=== PATIENT | female | born 1960 | race Caucasian/White ===

== ENCOUNTER 2022-03-06 16:29 | Emergency (ER) | payer MEDICARE, MEDICAID, SELFPAY ==
[2022-03-06 17:48] VITALS: BP 173/100; PULSE 82; RESP 18; TEMP 36.3; O2SAT 99; BMI 18.8
[2022-03-06 19:18] LABS: MANUAL DIFF FLAG NO
[2022-03-06 19:20] LABS: Basophils Absolute Auto 0.1 X10*3/uL (0.0-0.2); Basophils Percent Auto 0.6 % (0-2); Eosinophils Absolute Auto 0.2 X10*3/uL (0.0-0.4); Eosinophils Percent Auto 1.7 % (0-4); Hematocrit 49.3 % (37.0-47.0); Hemoglobin 16.6 g/dl (12.0-16.0); Imm Gran Abs Auto 0.03 X10*3/uL (0.00-0.03); Imm Gran Pct Auto 0.3 % (0.0-0.4); Lymphocytes Absolute Auto 2.9 X10*3/uL (1.2-4.9); Lymphocytes Percent Auto 28.9 % (20-40); Mean Corpuscular HGB Conc 33.7 g/dl (31.0-35.0); Mean Corpuscular Hemoglobin 30.1 pg (27.0-33.0); Mean Corpuscular Volume 89.5 fL (80.0-98.0); Monocytes Absolute Auto 0.7 X10*3/uL (0.1-1.2); Monocytes Percent Auto 7.2 % (2-11); Neutrophils Percent Auto 61.3 % (45-73); Platelet Count 365 X10*3/uL (160-400); Red Blood Count 5.51 X10*6/uL (4.20-5.50); Red Cell Distribution Width 12.9 % (11.0-16.0); White Blood Count 9.9 X10*3/uL (4.8-10.8)
[2022-03-06 19:33] LABS: COVID-19 Test Negative (Negative)
[2022-03-06 19:35] LABS: Alanine Aminotransferase 16 U/L (0-31); Albumin Level 4.7 g/dL (3.5-5.0); Alkaline Phosphatase 84 U/L (39-117); Anion Gap 14 (12-20); Aspartate Amino Transferase 16 U/L (5-31); Bilirubin Total 0.7 mg/dL (0.0-1.0); Blood Urea Nitrogen 13 mg/dL (9-16); Calcium 10.9 mg/dL (8.4-10.2); Carbon Dioxide 27 mmol/L (22-29); Chloride 106 mmol/L (96-108); Creatinine Clr Calc Pharmacy 56.7; Estimated Glomerular Filt Rate > 60; Glucose Random 92 mg/dL (60-115); Potassium 4.8 mmol/L (3.3-5.1); Sodium 142 mmol/L (135-145); Total Protein 7.8 g/dL (6.5-8.0)
[2022-03-06 20:34] LABS: Appearance Urine CLEAR; Color Urine YELLOW; Glucose Urine UA NEG (NEG); Leukocyte Esterase Urine 1+ (NEG); Nitrite Urine NEG (NEG); PH 6.5 (5.0-8.0); UACC Culture Trigger YES; Urine Blood 2+ (NEG); Urine Ketones 15 MG/DL (NEG); Urine Protein NEG (NEG-TRACE)
[2022-03-06 20:47] LABS: Mucus Urine 1+ /LPF; Squamous Epithelial Cell Urine 1+ /LPF
[2022-03-06 20:50] LABS: Bacteria Urine TRACE /LPF
--- NOTE | 2022-03-07 04:02 | ED.ABDPAIN ---
HPI - Abdominal Pain General Chief Complaint: Abdominal Pain Stated Complaint: headache Time Seen by Provider: 03/06/22 17:10 Source: patient Mode of arrival: ambulatory History of Present Illness HPI narrative: 61-year-old female with history of gastritis and hyperlipidemia who presents with epigastric discomfort but denies any diarrhea, shortness of breath, fever, chills, chest pain/palpitations. Patient states that the pain has somewhat improved during her weight here in the emergency room but she is having 1 of her typical migraine headaches. These are typically associated with mild nausea that patient reports she does have, in addition, patient reports urinary frequency. Related Data Previous Rx's Medication Instructions Recorded nitrofurantoin 100 mg PO Q12H 5 Days #10 cap 03/07/22 monohydrate/macrocrystals 100 mg capsule (Macrobid) omeprazole 40 mg capsule,delayed 40 mg PO DAILY #30 cap 03/07/22 release Allergies Allergy/AdvReac Type Severity Reaction Status Date / Time aspirin [ASA] AdvReac Unknown Verified 03/06/22 17:46 Review of Systems Review of Systems Pertinent positives and negatives as stated in HPI 10 point review of systems is otherwise negative. [facility] Past Medical History Source: nursing notes reviewed Social History Social History Advance Directives: No Physical Exam ED Vital Signs: Vital Signs - 24 hr 03/06/22 17:48 03/07/22 04:50 Temperature 97.4 F 98 F Pulse Rate 82 77 Respiratory Rate 18 16 Blood Pressure 173/100 H 135/99 H Pulse Oximetry 99 97 BMI result Body Mass Index 18.8 VITAL SIGNS: Reviewed. GENERAL: Well developed, well nourished, in no acute distress. HEAD: Normocephalic/atraumatic EYES: PERRLA, EOMI EARS: Ext canals without abnormality OROPHARYNX: no oral lesions noted, posterior pharynx clear LUNGS: Normal breath sounds. No adventitious sounds or accessory muscle use. SpO2<99> CARDIOVASCULAR: Regular rate and rhythm without noted murmurs ABDOMEN: Soft, non-tender, non-distended with bowel sounds. MUSCULOSKELETAL: No tenderness, deformities, or effusions noted on gross inspection. EXTREMITIES: No cyanosis, clubbing or edema. SKIN: Inspection of the skin reveals no rashes NEUROLOGIC: Alert and oriented x 4. Strength and sensation to light touch were grossly intact x 4, cranial nerves 2-12 are grossly intact, no pronator drift, no facial asymmetry. Course Course Course Narrative: 61-year-old female with history and clinical presentation consistent with migraine as well as mild gastritis. Review of all investigations otherwise is negative except for presence of wbc's in the urine with trace bacteria. Patient received GI cocktail as well as initial antibiotics and medication for her headache. On re-evaluation patient is feeling much better, headache has improved and her stomach is feeling less upset. She is tolerating oral intake and is otherwise discharged home in stable condition. MDM - Abdominal Pain Lab Data Result diagrams: 03/06/22 19:08 03/06/22 19:08 Labs: Lab Results 03/06/22 03/06/22 03/06/22 Range/Units 19:08 19:08 19:08 WBC 9.9 (4.8-10.8) X10*3/uL RBC 5.51 H (4.20-5.50) X10*6/uL Hgb 16.6 H (12.0-16.0) g/dl Hct 49.3 H (37.0-47.0) % MCV 89.5 (80.0-98.0) fL MCH 30.1 (27.0-33.0) pg MCHC 33.7 (31.0-35.0) g/dl RDW 12.9 (11.0-16.0) % Plt Count 365 (160-400) X10*3/uL MPV 8.0 L (9.4-12.3) fL Immature Gran % (Auto) 0.3 (0.0-0.4) % Neut % (Auto) 61.3 (45-73) % Lymph % (Auto) 28.9 (20-40) % [place] % (Auto) 7.2 (2-11) % Eos % (Auto) 1.7 (0-4) % Baso % (Auto) 0.6 (0-2) % Lymph # (Auto) 2.9 (1.2-4.9) X10*3/uL [place] # (Auto) 0.7 (0.1-1.2) X10*3/uL Eos # (Auto) 0.2 (0.0-0.4) X10*3/uL Baso # (Auto) 0.1 (0.0-0.2) X10*3/uL Abs Immat Gran (auto) 0.03 (0.00-0.03) X10*3/uL Absolute Neuts (auto) 6.0 (2.0-8.3) x10*3/uL Absolute Nucleated RBC 0.000 (0.0-0.012) X10*3/uL Nucleated RBC % (auto) 0.0 (0.0-0.2) /100WBC Sodium 142 (135-145) mmol/L Potassium 4.8 (3.3-5.1) mmol/L Chloride 106 (96-108) mmol/L Carbon Dioxide 27 (22-29) mmol/L Anion Gap 14 (12-20) BUN 13 (9-16) mg/dL Creatinine 0.79 (0.5-1.4) mg/dL Estim Creat Clear Calc 56.7 Estimated GFR > 60 Random Glucose 92 (60-115) mg/dL Calcium 10.9 H (8.4-10.2) mg/dL Total Bilirubin 0.7 (0.0-1.0) mg/dL AST 16 (5-31) U/L ALT 16 (0-31) U/L Alkaline Phosphatase 84 (39-117) U/L Total Protein 7.8 (6.5-8.0) g/dL Albumin 4.7 (3.5-5.0) g/dL Urine Color Urine Appearance Urine pH (5.0-8.0) Ur Specific Caldwell (1.005-1.025) Urine Protein (NEG-TRACE) MG/DL Urine Glucose (UA) (NEG) MG/DL Urine Ketones (NEG) MG/DL Urine Blood (NEG) Urine Nitrite (NEG) Ur Leukocyte Esterase (NEG) Urine RBC (0) /HPF Urine WBC (0-4) /HPF Ur Squamous Epith Cells /LPF Urine Bacteria /LPF Urine Mucus /LPF COVID-19 ([place]) Negative (Negative) COVID-19 Clin Com See Note 03/06/22 Range/Units 20:18 WBC (4.8-10.8) X10*3/uL RBC (4.20-5.50) X10*6/uL Hgb (12.0-16.0) g/dl Hct (37.0-47.0) % MCV (80.0-98.0) fL MCH (27.0-33.0) pg MCHC (31.0-35.0) g/dl RDW (11.0-16.0) % Plt Count (160-400) X10*3/uL MPV (9.4-12.3) fL Immature Gran % (Auto) (0.0-0.4) % Neut % (Auto) (45-73) % Lymph % (Auto) (20-40) % [place] % (Auto) (2-11) % Eos % (Auto) (0-4) % Baso % (Auto) (0-2) % Lymph # (Auto) (1.2-4.9) X10*3/uL [place] # (Auto) (0.1-1.2) X10*3/uL Eos # (Auto) (0.0-0.4) X10*3/uL Baso # (Auto) (0.0-0.2) X10*3/uL Abs Immat Gran (auto) (0.00-0.03) X10*3/uL Absolute Neuts (auto) (2.0-8.3) x10*3/uL Absolute Nucleated RBC (0.0-0.012) X10*3/uL Nucleated RBC % (auto) (0.0-0.2) /100WBC Sodium (135-145) mmol/L Potassium (3.3-5.1) mmol/L Chloride (96-108) mmol/L Carbon Dioxide (22-29) mmol/L Anion Gap (12-20) BUN (9-16) mg/dL Creatinine (0.5-1.4) mg/dL Estim Creat Clear Calc Estimated GFR Random Glucose (60-115) mg/dL Calcium (8.4-10.2) mg/dL Total Bilirubin (0.0-1.0) mg/dL AST (5-31) U/L ALT (0-31) U/L Alkaline Phosphatase (39-117) U/L Total Protein (6.5-8.0) g/dL Albumin (3.5-5.0) g/dL Urine Color YELLOW Urine Appearance CLEAR Urine pH 6.5 (5.0-8.0) Ur Specific Caldwell 1.020 (1.005-1.025) Urine Protein NEG (NEG-TRACE) MG/DL Urine Glucose (UA) NEG (NEG) MG/DL Urine Ketones 15 (NEG) MG/DL Urine Blood 2+ H (NEG) Urine Nitrite NEG (NEG) Ur Leukocyte Esterase 1+ H (NEG) Urine RBC 5-9 H (0) /HPF Urine WBC 5-9 H (0-4) /HPF Ur Squamous Epith Cells 1+ /LPF Urine Bacteria TRACE /LPF Urine Mucus 1+ /LPF COVID-19 ([place]) (Negative) COVID-19 Clin Com Discharge Plan Discharge Clinical Impression: Gastritis, Gastroesophageal reflux disease, UTI (urinary tract infection) Patient Disposition: Home, Self-Care Instructions: Gastritis (ED), Urinary Tract Infection in Women (DC), Diet for Stomach Ulcers and Gastritis (ED) Additional Instructions: 1. Increase intake of water. 2. You have been given a prescription for gastritis. 3. Please complete the entire course of antibiotics. Return to the ER for worsening symptoms. Prescriptions: New omeprazole 40 mg capsule,delayed release(DR/EC) 40 mg PO DAILY Qty: 30 0RF nitrofurantoin monohyd/m-cryst [Macrobid] 100 mg capsule 100 mg PO Q12H 5 Days Qty: 10 0RF Rx Instructions: must administer with a meal/food
[2022-03-07] MEDS: Lidocaine HCl Viscous 2 % 15 ML SOLUTION 10 ML MUCOUS MEM (04:05)
[2022-03-07] MEDS: Magnesium Hydrox/Alum Hydrox 30 ML ORAL.SUSP PO (04:05)
[2022-03-07] MEDS: Acetaminophen 325 MG TABLET 975 MG PO (04:05)
[2022-03-07] MEDS: Nitrofurantoin Monohyd/M-Cryst 100 MG CAPSULE PO (04:06)
[2022-03-07 04:50] VITALS: BP 135/99; PULSE 77; RESP 16; TEMP 36.6; O2SAT 97
== END 2022-03-07 05:59 | disposition home or self-care (01) ==
PROVIDERS: Emergency Provider Student in an Organized Health Care Education/Training Program
DX: K29.70 Gastritis, unspecified, without bleeding (principal); K21.9 Gastro-esophageal reflux disease without esophagitis; N39.0 Urinary tract infection, site not specified; R51.9 Headache, unspecified; Z20.822 Contact with and (suspected) exposure to COVID-19
CPT/HCPCS: 80053; 81001; 85025; 87086; 87635; 99283

== ENCOUNTER 2022-10-24 14:57 | Outpatient (REF) | payer MEDICARE, MEDICAID, SELFPAY ==
--- NOTE | ~2022-10-24 | MM_ITS ---
EXAMINATION: MM SCREENING DIGITAL BREAST TOMOSYNTHESIS, BILATERAL CLINICAL INFORMATION: Screening. Asymptomatic. Age 62, prior mammography from [place] over 15 years ago and no longer available. No known family history breast cancer. The lifetime risk of breast cancer based on the Tyrer-Cuzick Model is 7%. COMPARISON: None (current study represents new baseline exam). TECHNIQUE: Digital breast tomosynthesis is performed in both the craniocaudal and mediolateral oblique views along with computer-aided detection (CAD). Synthesized 2D images are generated from the tomosynthesis. Additional bilateral exaggerated CC views are provided. FINDINGS: The breasts are heterogeneously dense, which may obscure small masses (ACR BI-RADS breast composition Category c). Breast tissue composition borders on average fibroglandular. There are no significant masses, abnormal calcifications, or other abnormalities. No architectural abnormality. The axilla and skin contours are unremarkable. MM/MM tomosynthesis screening BI IMPRESSION: No mammographic evidence of malignancy. ASSESSMENT: BI-RADS 1: Negative RECOMMENDATION: Routine annual mammography screening. This patient's information was entered into a reminder system with a target due date for their next mammogram.
== END 2022-10-24 14:58 | disposition home or self-care (01) ==
LOC: HO.MAMMO 14:57
PROVIDERS: PCP Internal Medicine; Visit Provider Internal Medicine
DX: Z12.31 Encounter for screening mammogram for malignant neoplasm of breast (principal)
CPT/HCPCS: 77063; 77067

== ENCOUNTER → 2022-10-28 13:36 | Outpatient (BNVA) | payer MEDICARE, MEDICAID, SELFPAY | PROVIDERS: Visit Provider Orthopaedic Surgery | DX: M65.4 Radial styloid tenosynovitis [de Quervain] (principal); R20.0 Anesthesia of skin; R20.2 Paresthesia of skin | CPT/HCPCS: 99202; J1100 ==

== ENCOUNTER 2022-11-27 13:00 | Outpatient (REF) | payer MEDICARE, MEDICAID, SELFPAY ==
[2022-11-27 17:43] LABS: CT PCR NOT DETECTED (Not Detect.); NG PCR NOT DETECTED (Not Detect.)
[2022-11-28 13:16] LABS: BV Int Neg Control Negative (Negative); BV Int Pos Control Positive (Positive)
== END 2022-11-27 13:01 | disposition home or self-care (01) ==
LOC: HO.LAB 13:00
PROVIDERS: PCP Internal Medicine; Visit Provider Advanced Practice Midwife
DX: Z01.419 Encounter for gynecological examination (general) (routine) without abnormal findings (principal); Z11.3 Encounter for screening for infections with a predominantly sexual mode of transmission
CPT/HCPCS: 0353U; 87480; 87510; 87660

== ENCOUNTER 2022-11-27 14:11 | Outpatient (REF) | payer MEDICARE, MEDICAID, SELFPAY ==
[2022-12-02 05:24] LABS: HPV mRNA E6/E7 rflx Not Detected (Not Detected)
== END 2022-11-27 14:12 | disposition home or self-care (01) ==
LOC: HO.LNP 14:11
PROVIDERS: Visit Provider Advanced Practice Midwife
DX: Z01.419 Encounter for gynecological examination (general) (routine) without abnormal findings (principal); Z11.51 Encounter for screening for human papillomavirus (HPV)
CPT/HCPCS: 87624; 88142

== ENCOUNTER 2023-02-26 08:09 | Outpatient (REF) | payer MEDICARE, MEDICAID, SELFPAY ==
--- NOTE | 2023-02-26 08:16 | EMG_ITS ---
Bilateral median and ulnar motor and sensory studies were performed. Bilateral radial sensory studies were performed and paraspinal muscles were tested with a needle. IMPRESSION: 1. Mild right median neuropathy across carpal tunnel. 2. Mild bilateral ulnar neuropathy across elbow. MD BIB [place]/BENTLEY / [id number]
[2023-02-26 08:20] LABS: MANUAL DIFF FLAG NO
[2023-02-26 08:44] LABS: Basophils Absolute Auto 0.1 X10*3/uL (0.0-0.2); Basophils Percent Auto 0.7 % (0-2); Eosinophils Absolute Auto 0.1 X10*3/uL (0.0-0.4); Eosinophils Percent Auto 1.5 % (0-4); Hematocrit 47.3 % (37.0-47.0); Hemoglobin 15.6 g/dl (12.0-16.0); Imm Gran Abs Auto 0.02 X10*3/uL (0.00-0.03); Imm Gran Pct Auto 0.3 % (0.0-0.4); Lymphocytes Absolute Auto 1.5 X10*3/uL (1.2-4.9); Lymphocytes Percent Auto 20.5 % (20-40); Mean Corpuscular Hemoglobin 29.4 pg (27.0-33.0); Mean Corpuscular Volume 89.2 fL (80.0-98.0); Mean Platelet Volume 8.4 fL (9.4-12.3); Monocytes Absolute Auto 0.6 X10*3/uL (0.1-1.2); Monocytes Percent Auto 8.4 % (2-11); Neutrophils Absolute Auto 5.2 x10*3/uL (2.0-8.3); Neutrophils Percent Auto 68.6 % (45-73); Platelet Count 351 X10*3/uL (160-400); Red Cell Distribution Width 13.6 % (11.0-16.0); White Blood Count 7.5 X10*3/uL (4.8-10.8)
[2023-02-26 09:22] LABS: Alanine Aminotransferase 14 U/L (0-31); Albumin Level 4.4 g/dL (3.5-5.0); Alkaline Phosphatase 81 U/L (39-117); Anion Gap 15 (12-20); Aspartate Amino Transferase 17 U/L (5-31); Bilirubin Total 0.8 mg/dL (0.0-1.0); Blood Urea Nitrogen 13 mg/dL (9-16); Calcium 9.9 mg/dL (8.4-10.2); Carbon Dioxide 26 mmol/L (22-29); Chloride 109 mmol/L (96-108); Cholesterol 228 mg/dL; Estimated Glomerular Filt Rate > 60; Glucose Fasting 101 mg/dL (60-99); HDL Cholesterol 51 mg/dL; LDL Cholesterol Calculated 154 mg/dl; Potassium 4.4 mmol/L (3.3-5.1); Sodium 146 mmol/L (135-145); Total Protein 7.1 g/dL (6.5-8.0); Triglycerides 119 mg/dL
[2023-02-26 09:40] LABS: Vitamin D 25-OH Total 32.2 ng/mL (>30)
[2023-02-27 03:08] LABS: Syphilis Screen Nonreactive (Nonreactive)
[2023-02-27 04:22] LABS: HBc Num1 0.09 S/CO (0.00-0.79); HIV AB/AG Nonreactive (Nonreactive); HIV Num 1 0.06 S/CO (0.00-0.99); Hepatitis B Core Antibody Nonreactive (Nonreactive); ~HepC Num1 0.37 S/CO (0.00-0.79); ~Hepatitis C Antibody Nonreactive (Nonreactive)
[2023-03-02 07:44] LABS: Calcium, Ionized 5.4 mg/dL (4.7-5.5)
== END 2023-02-26 08:10 | disposition home or self-care (01) ==
LOC: HO.NEURO 08:09
PROVIDERS: Advanced Practice Midwife; PCP Internal Medicine; Visit Provider Orthopaedic Surgery
DX: R20.0 Anesthesia of skin (principal); R20.2 Paresthesia of skin; E83.52 Hypercalcemia; F32.A Depression, unspecified; G56.03 Carpal tunnel syndrome, bilateral upper limbs; I10 Essential (primary) hypertension; K29.70 Gastritis, unspecified, without bleeding; Z11.4 Encounter for screening for human immunodeficiency virus [HIV]; Z78.0 Asymptomatic menopausal state; Z20.2 Contact with and (suspected) exposure to infections with a predominantly sexual mode of transmission; Z11.59 Encounter for screening for other viral diseases; Z72.89 Other problems related to lifestyle
CPT/HCPCS: 36415; 80053; 80061; 82306; 82330; 85025; 86704; 86780; 86803; 87389; 95886; 95911

== ENCOUNTER 2023-05-28 15:03 | Outpatient (AMB) | payer MEDICARE, MEDICAID, SELFPAY ==
--- NOTE | 2023-05-28 15:04 | A.OFFVIS_ITS ---
Intake Vital Signs 05/28/23 15:05 Height 5 ft 2 in Weight 106 lb BMI 19.4 BP 116/72 Intake Visit Reasons: OMAR /30 mins Watch Assembler Required: Yes Watch Assembler Language: Adobe Flex Developer Name: Darya Information Interpreted: non-clinical & clinical Ruby On Rails Consultant: Ruby On Rails Consultant Present (Darya) Allergies aspirin [ASA] Adverse Reaction (Verified 05/28/23 15:08) Unknown Is last menstrual period known: No Post menopausal: Yes Patient : No HPI HPI Comments History of Present Illness Details She is here for OMAR for Trichomonas. Reports she finished Rx that was given. Currently not sexually active. Denies new sexual partner, vaginal discharge or pelvic pain. PFSH Medical History Carpal tunnel syndrome, bilateral Cervical disc disease Cigarette smoker one half pack a day or less Depression Essential hypertension Gastritis Hypercalcemia Trichomonas contact, treated Surgical History H/O tubal ligation Hx of tonsillectomy Previous section Family History Father HTN (hypertension) Social History Household Members Other:: roomate Housing: Apartment Alcohol intake: current Alcohol intake frequency: holidays/special occasions only Patient Tobacco Use Status: Current everyday Tobacco user Cigarettes Per Day: 5 Years Smoked: 45 e-Cigarette/Vaping Use: Never Used Patient : No Current occupational status: unemployed and disabled Current occupation: rt hand Cognitive needs: No Hearing needs: No Vision needs: Yes Female Reproductive History Menstrual control method: none Total pregnancies: 3 Number of Living Children: 3 History of STI: Yes (11/27/22 +TRich) Physical Exam Vital Signs: Last Vital Signs BP 116/72 05/28/23 15:05 BMI result Body Mass Index 19.4 Const General: cooperative, healthy appearing, comfortable, no acute distress, well developed, alert and awake Other: General: Yes bladder normal to palpation External Female Exam: normal external appearance and normal appearance of the urethra Speculum Exam - Vagina: normal appearance of the vagina, normal palpation, abnormal vaginal discharge white and vagina atrophic Speculum Exam - Cervix: normal appearance of the cervix and normal palpation Bimanual exam- vagina & uterus: normal bimanual exam, normal palpation, bladder normal to palpation and normal palpation Bimanual Exam- Adnexa, other: normal adnexae and no masses Results Reviewed Results Reviewed: Laboratory Tests 11/27/22 13:00 Gardnerella DNA Probe Positive A Trichomonas DNA Probe Positive A Assessment & Plan Assessment & Plan (1) Trichomonas contact, treated: Code(s): Z20.2 - Contact with and (suspected) exposure to infections with a predominantly sexual mode of transmission Plan: Discussed: BV testing and GC/CT panel done today. Await results and treat accordingly. Encouraged to use condoms for STD prevention if become sexually active. All of her questions and concerns were addressed to the best of my ability and shared decision making. She is agreeable to plan of care. Orders: Orders Bacterial Vaginosis Panel Today Z11.3 - Encounter for screening for infections with a predominantly sexual mode of transmission, Z20.2 - Contact with and (suspected) exposure to infections with a predominantly sexual mode of transmission Coding Level of Care Code Est Pt Level 3 (39542) Diagnoses Trichomonas contact, treated Z20.2
[2023-05-28 15:05] VITALS: BP 116/72; BMI 19.4
== END 2023-05-28 15:21 | disposition home or self-care (01) ==
LOC: HO.HWS 15:03
PROVIDERS: PCP Internal Medicine; Visit Provider Advanced Practice Midwife
DX: Z20.2 Contact with and (suspected) exposure to infections with a predominantly sexual mode of transmission (principal)
CPT/HCPCS: 99213

== ENCOUNTER 2023-05-28 15:03 | Outpatient (REF) | payer MEDICARE, MEDICAID, SELFPAY ==
[2023-05-29 15:17] LABS: BV Int Neg Control Negative (Negative); BV Int Pos Control Positive (Positive)
== END 2023-05-28 15:04 | disposition home or self-care (01) ==
LOC: HO.LAB 15:03
PROVIDERS: PCP Internal Medicine; Visit Provider Advanced Practice Midwife
DX: Z11.3 Encounter for screening for infections with a predominantly sexual mode of transmission (principal); Z20.2 Contact with and (suspected) exposure to infections with a predominantly sexual mode of transmission
CPT/HCPCS: 87480; 87510; 87660; 99212

== ENCOUNTER 2023-07-31 12:54 | Outpatient (AMB) | payer MEDICARE, MEDICAID, SELFPAY ==
[2023-07-31 13:27] VITALS: BP 112/78; PULSE 80; O2SAT 98; BMI 20.1
--- NOTE | 2023-07-31 13:27 | A.OFFPC_ITS ---
Vital Signs 07/31/23 13:27 Height 5 ft 2 in Weight 110 lb 2 oz BMI 20.1 BP 112/78 Blood Pressure Location Lt brachial Position Sitting Pulse 80 Pulse Source Pulse Oximeter Pulse Oximetry (%) 98 Oxygen Delivery Method Room Air Intake Visit Reasons: Pain in Shoulders Intake Note: pt is here for pain in her left shoulder pt says she did have a torn muscle in the past but now when she puts her arm up she feels a lump in the muscle Allergies aspirin [ASA] Adverse Reaction (Verified 07/31/23 14:26) Unknown Medication List - Last Reconciled 07/31/23 by Neli Beavers MD acetaminophen (Tylenol Extra Strength) 500 mg PO Q6H PRN Tobacco use date assessed: 07/31/23 Dental Screening Dental Screen Date: 07/31/23 Did you have a dental visit in the last 12 months?: No Did you have a dental problem in the last 6 months where you did not have access to dental care?: No Was dental information given to patient?: No HPI Pain in Shoulders HPI Details 62-year-old lady here today complaining of pain in her left shoulder, worse with raising her left arm overhead, lifting or carrying anything in her left hand, or doing any twisting movement with her left arm. Patient states that she has injured the same arm several years ago, torn some muscles, but never received treatment She is also complaining of frequent heartburn symptoms, worse after eating anything spicy or acidic. Currently not taking any medication for this. Denies any melena no hematochezia, no alteration in bowel habits. [facility] Medical History (Updated 07/31/23 @ 14:27 by Neli Beavers MD) Chronic heartburn Chronic left shoulder pain Trichomonas contact, treated Cervical disc disease Hypercalcemia Depression Cigarette smoker one half pack a day or less Gastritis Carpal tunnel syndrome, bilateral Essential hypertension Surgical History H/O tubal ligation Previous section Hx of tonsillectomy Family History Father HTN (hypertension) Social History Household Members Other:: roomate Housing: Apartment Alcohol intake: current Alcohol intake frequency: holidays/special occasions only Patient Tobacco Use Status: Current someday Tobacco user Cigarettes Per Day: 1 Years Smoked: 45 e-Cigarette/Vaping Use: Currently Using Current occupational status: unemployed and disabled Current occupation: rt hand Cognitive needs: No Hearing needs: No Vision needs: Yes Questionnaire REYNALDO-7 AMB Questionnaire REYNALDO-7 Date REYNALDO - 7 assessed: 09/30/22 Source: Developed by Drs. Edgardo Peguero, Jolene Melissa, Kennedy Solares and colleagues, with an educational tona from [email or web address]. Review of Systems Const All systems reviewed & are unremarkable except as noted in HPI and below Physical exam (Primary Care) Vital Signs: Last Vital Signs Pulse 80 07/31/23 13:27 BP 112/78 07/31/23 13:27 Pulse Ox 98 07/31/23 13:27 Oxygen Delivery Method Room Air 07/31/23 13:27 BMI result Body Mass Index 20.1 Tobacco/Smoking Status: Tobacco use Status Tobacco use date assessed 07/31/23 07/31/23 13:35 Patient Tobacco Use Status Current someday Tobacco 07/31/23 13:35 e-Cigarette/Vaping Use Currently Using 07/31/23 13:35 Const General: comfortable and no acute distress Nutritional Appearance: average body habitus Orientation/consciousness: patient oriented x3 HENMT Head: Yes atraumatic Ears: hearing grossly normal bilaterally General nose exam: Normal external nose present Face and sinus: Yes face symmetric Mouth: Normal oral and palatal mucosa present, oropharynx normal and moist mucous membranes Neck Neck: Yes full ROM, Yes no lymphadenopathy and Yes supple Thyroid: Thyroid normal Resp Effort & Inspection: normal respiratory effort Auscultation: clear to auscultation bilaterally Cardio Rate: regular rate Rhythm: regular rhythm Heart sounds: S1 normal heart sound present and S2 normal heart sound present GI Palpation (GI): Soft to palpation, nontender, no guarding and no masses Back/Spine/Pelvis Back: No back tenderness Skin General skin exam: no rashes or lesions noted Neuro General: patient oriented x3, gait normal, tone normal, moves all extremities, Normal light touch and pain sensation, no focal motor deficits and CN's II-XI intact bilaterally Extrem Other: Tenderness on palpation over posterior aspect of left shoulder, with no gross bone deformity or joint swelling seen, General: Yes normal to inspection, Yes full ROM and Yes no clubbing, cyanosis or edema Assessment and Plan Assessment & Plan (1) Chronic left shoulder pain: Code(s): M25.512 - Pain in left shoulder; G89.29 - Other chronic pain Plan: Ordered x-ray of left shoulder and referred for physical therapy. Advised to try taking Tylenol extra-strength 500 mg per tablet to take 1 tablet every 6 hours as needed for pain. (2) Chronic heartburn: Code(s): R12 - Heartburn Plan: Given prescription for omeprazole 20 mg per capsule to take once a day an hour before eating. For at least 30 days. Referred to GI for further evaluation and management of chronic heartburn Orders: Orders XR shoulder LT min 2V 07/31/23 G89.29 - Other chronic pain, M25.512 - Pain in left shoulder PT Evaluation and Treatment 07/31/23 G89.29 - Other chronic pain, M25.512 - Pain in left shoulder Referrals Gastroenterology Referral R12 - Heartburn Medications: New omeprazole 20 mg PO DAILY 30 caps 1RF Coding Level of Care Code Est Pt Level 3 (36192) Diagnoses Chronic left shoulder pain M25.512; G89.29 Chronic heartburn R12
== END 2023-07-31 14:34 | disposition home or self-care (01) ==
PROVIDERS: PCP Internal Medicine; Visit Provider Internal Medicine
DX: M25.512 Pain in left shoulder (principal); G89.29 Other chronic pain; R12 Heartburn
CPT/HCPCS: 99213

== ENCOUNTER 2023-09-29 11:00 | Outpatient (RCR) | payer MEDICARE, MEDICAID, SELFPAY ==
--- NOTE | 2023-09-15 11:56 | MHC.PT.EP ---
[facility] [place] Office [place] Office [place] Office [address] Carley Taylor [address] [phone] F: [phone] F: [phone] F: [phone] F: [phone] Physical Therapy Plan of Care Date of Evaluation: 09/15/23 Date of Surgery: n/a Diagnosis: chronic L shoulder pain Assessment: Patient is a 63 old female presenting to PT with complaints of pain in her L shoulder. Pt reports onset of pain began >1 year ago due to insidious onset. She presents today with impairments in pain, ROM, strength, and posture. Pt's current occupation is none, with baseline physical activities including ADLs, reaching, lifting. Pt expresses senior living goal of reducing pain, and is motivated to work towards this in PT. Clinical presentation today is most consistent with signs and sx associated with L shoulder pain and pt will benefit from skilled PT 2 week x 4 weeks to address the following problems and impairments noted upon evaluation: pain, ROM, strength, and posture. These problems limit the patient with the following functional activities: ADLs, reaching, lifting. The prescribed treatment plan of care is medically necessary. Co-morbidities of HTN were identified and taken into considerations of plan of care. Pt was educated on HEP, role of PT, prognosis, POC. Frequency and Duration: The patient will be seen 2 x week x 4 weeks Short Term Goals: Pt will demonstrate ROM through available range with min to no pain in 2 weeks. Pt will demonstrate improved L shoulder MMT strength by 1/3 grade in 2 weeks. Pt will demonstrate improved postural awareness by sitting with biomechanically correct posture without cues throughout session to improve overall postural function in 2 weeks. [employer] Goals: Pt will demonstrate improved SPADI score by 13 points in 4 weeks for improved functional mobility. Pt will demonstrate ability to reach OH with min to no pain in 4 weeks for improved tolerance to self care like washing her hair. Pt will demonstrate improved ability to complete ADLs with min to no pain as a result of her shoulder in 4 weeks for improved independence. Treatment Plan: Modalities to reduce pain, spasms and effusion. Manual therapy to restore motion and function. Therapeutic exercise to improve strength and flexibility. Neuromuscular re-education for posture and balance. Therapeutic activities to return to functional activities of daily living. Electronically signed by: Belkis Hart, PT, DPT, ATC Please sign and return to therapist. Thank you for your referral.
--- NOTE | 2023-10-20 10:20 | MHC.PT.DC ---
[facility] [place] Office [place] Office [place] Office [address] [phone] F: [phone] F: [phone] F: [phone] F: [phone] Physical Therapy Discharge Report Diagnosis: chronic L shoulder pain Date of Surgery: n/a Date of Evaluation: 09/15/23 Date of Discharge: 10/20/23 Treatments to Date: 4 Cancellations to Date: 2 No Shows to Date: 2 Discharge Status: Visit Non-compliance Discharge Summary: Pt has failed to comply with [facility] attendance policy and no showed her last 2 appointments. Pt to be d/c per policy. Electronically signed by: Belkis Hart PT, DPT, ATC Please sign and return to therapist. Thank you for your referral.
== END 2023-10-20 10:21 | disposition home or self-care (01) ==
LOC: HO.PTCHIC 11:00
PROVIDERS: PCP Internal Medicine; Visit Provider Internal Medicine
DX: M25.512 Pain in left shoulder (principal); G89.29 Other chronic pain
CPT/HCPCS: 97110; 97161

== ENCOUNTER 2023-11-12 07:17 | Emergency (ER) | payer MEDICARE, MEDICAID, SELFPAY ==
[2023-11-12 07:45] VITALS: BP 147/97; BP 160/100; PULSE 75; PULSE 94; RESP 18; TEMP 36.6; O2SAT 99; BMI 20.1
--- NOTE | 2023-11-12 08:22 | ED_ITS ---
HPI - General Adult General Chief complaint: General Medical Stated complaint: HIGH BP 160/100 PER EMS Time Seen by Provider: 11/12/23 08:22 History of Present Illness HPI narrative: This is a 63-year-old woman who comes to the emergency room this morning by ambulance because her blood pressure was high at home. She was worried that her diastolic blood pressure was over 100. The patient says that she has been feeling dizzy with intermittent headaches over the last 4 or 5 weeks. She says that she felt like this a couple of years ago and came to the emergency room and was found to have high blood pressure and was put on lisinopril. She subsequently followed up with her primary care doctor and had much better blood pressures and was ultimately taken off the lisinopril. She has therefore not been on antihypertensives for over a year. she says that 2 days ago on Thursday a nurse came from her insurance company for an annual evaluation and her blood pressure was high with the nurse. She has been worried about her blood pressure ever since. Related Data Home Medications Medication Instructions Recorded Confirmed acetaminophen 500 mg tablet 500 mg PO Q6H PRN 07/31/23 07/31/23 (Tylenol Extra Strength) Previous Rx's Medication Instructions Recorded omeprazole 20 mg capsule,delayed 20 mg PO DAILY #90 caps 08/03/23 release lisinopril 5 mg tablet 5 mg PO DAILY #30 tabs 11/12/23 Allergies Allergy/AdvReac Type Severity Reaction Status Date / Time aspirin [ASA] AdvReac Unknown Verified 11/12/23 07:57 Review of Systems 2 Review of Systems: Yes all other systems are reviewed and are negative [facility] Past Medical History Medical History (Updated 11/12/23 @ 10:41 by Titi Forde MD) Chronic heartburn Chronic left shoulder pain Trichomonas contact, treated Cervical disc disease Hypercalcemia Depression Cigarette smoker one half pack a day or less Gastritis Carpal tunnel syndrome, bilateral Essential hypertension Surgical History H/O tubal ligation Previous section Hx of tonsillectomy Family History Family History Father HTN (hypertension) Social History Social History Household Members Other:: roomate Housing: Apartment Alcohol intake: current Alcohol intake frequency: holidays/special occasions only Patient Tobacco Use Status: Current someday Tobacco user Cigarettes Per Day: 1 Years Smoked: 45 e-Cigarette/Vaping Use: Currently Using Advance Directives: No Advance Directives Information Provided: Yes Current occupational status: unemployed and disabled Current occupation: rt hand Cognitive needs: No Hearing needs: No Vision needs: Yes Physical Exam ED Vital Signs: Vital Signs - 24 hr 11/12/23 07:45 11/12/23 09:09 11/12/23 10:55 Temperature 97.9 F 98.7 F 97.4 F Pulse Rate 75 76 74 Respiratory Rate 18 14 16 Blood Pressure 147/97 H 143/99 H 126/97 H Pulse Oximetry 99 98 98 Oxygen Delivery Method Room Air Room Air Room Air BMI result Body Mass Index 20.1 HENMT Other: Face is symmetrical. Mucous membranes moist. Tongue midline. Eyes Other: Pupils are round equal, conjunctivae are clear, extraocular movements intact. Neck Other: No JVD Resp Effort & Inspection: normal respiratory effort Auscultation: clear to auscultation bilaterally Cardio Rate: regular rate Rhythm: regular rhythm Heart sounds: S1 normal heart sound present and S2 normal heart sound present GI Other: Abdomen is soft and nontender Skin Other: Skin is dry and unremarkable Neuro Other: The patient is awake, alert, oriented, appropriate. Eye movements are normal. Pupils are equal. Face is symmetrical. Speech is clear. She moves all 4 extremities normally with normal strength and sensation. She has a normal gait. She seems grossly neurologically intact n Extrem Other: No peripheral edema. No calf swelling or tenderness. Medical Decision Making Medical Decision Making [facility] Narrative: The patient is a 63-year-old female who presents with elevated blood pressure readings. She describes some nonspecific symptoms of dizziness and headache and blurry vision. These symptoms have been intermittent. Clinically she looks well and has an unremarkable neurological exam. EKG is unremarkable. Labs are unremarkable including renal function and urinalysis. No proteinuria. The patient was observed. Her initial blood pressure was 147/97. I saw a blood pressure as low as 117/74 when she was sleeping. The patient was reassured that she does not seem to have any acute complication of high blood pressure. She has been on lisinopril in the past and I will prescribe lisinopril 5 mg daily. She looks well enough for outpatient evaluation. She should follow up soon with her regular doctor. She should return if worse. Lab Data 11/12/23 09:19 11/12/23 09:19 Labs: Lab Results 11/12/23 Range/Units 09:19 WBC 7.2 (4.8-10.8) X10*3/uL RBC 5.23 (4.20-5.50) X10*6/uL Hgb 15.9 (12.0-16.0) g/dl Hct 45.4 (37.0-47.0) % MCV 86.8 (80.0-98.0) fL MCH 30.4 (27.0-33.0) pg MCHC 35.0 (31.0-35.0) g/dl RDW 12.9 (11.0-16.0) % Plt Count 309 (160-400) X10*3/uL MPV 7.9 L (9.4-12.3) fL Immature Gran % (Auto) 0.4 (0.0-0.4) % Neut % (Auto) 71.5 (45-73) % Lymph % (Auto) 19.1 L (20-40) % [place] % (Auto) 7.5 (2-11) % Eos % (Auto) 0.8 (0-4) % Baso % (Auto) 0.7 (0-2) % Lymph # (Auto) 1.4 (1.2-4.9) X10*3/uL [place] # (Auto) 0.5 (0.1-1.2) X10*3/uL Eos # (Auto) 0.1 (0.0-0.4) X10*3/uL Baso # (Auto) 0.1 (0.0-0.2) X10*3/uL Abs Immat Gran (auto) 0.03 (0.00-0.03) X10*3/uL Absolute Neuts (auto) 5.1 (2.0-8.3) x10*3/uL Absolute Nucleated RBC 0.000 (0.0-0.012) X10*3/uL Nucleated RBC % (auto) 0.0 (0.0-0.2) /100WBC Sodium 141 (135-145) mmol/L Potassium 3.7 (3.3-5.1) mmol/L Chloride 109 H (96-108) mmol/L Carbon Dioxide 25 (22-29) mmol/L Anion Gap 11 L (12-20) BUN 14 (9-16) mg/dL Creatinine 0.71 (0.5-1.4) mg/dL Estim Creat Clear Calc 65.4 Estimated GFR > 60 Random Glucose 95 (60-115) mg/dL Calcium 9.7 (8.4-10.2) mg/dL Magnesium 2.1 (1.6-2.6) mg/dL Total Bilirubin 0.6 (0.0-1.0) mg/dL Direct Bilirubin 0.2 (0.0-0.5) mg/dL AST 14 (5-31) U/L ALT 9 (0-31) U/L Alkaline Phosphatase 84 (39-117) U/L Troponin I High Sens < 2.7 (<3.5-17.0) ng/L B-Natriuretic Peptide 21 (<100) pg/mL Total Protein 7.1 (6.5-8.0) g/dL Albumin 4.3 (3.5-5.0) g/dL Independent Interpretation I performed an independent interpretation of an: EKG Interpretation: EKG at 09:04 shows normal sinus rhythm with a sinus arrhythmia at 70 beats per minute. No acute changes. Discharge Plan Discharge Clinical Impression: Hypertension, Dizziness Patient Disposition: Home, Self-Care Instructions: Hypertension (ED) Additional Instructions: Your testing in the emergency room today is reassuring. Additionally your blood pressure improved significantly without treatment. Your blood pressure came down to 117/76 while you were in the emergency room. I do not think it would be unreasonable for you to start a blood pressure medicine again. I have sent a prescription for lisinopril to your pharmacy. I have prescribed a low-dose for this medication. Please follow-up soon with your regular doctors office for a recheck and further discussion about blood pressure medications. Return to the emergency room if he feels significantly worse. Prescriptions: New lisinopril 5 mg tablet 5 mg PO DAILY Qty: 30 0RF No Action omeprazole 20 mg capsule,delayed release(DR/EC) 20 mg PO DAILY Qty: 90 0RF acetaminophen [Tylenol Extra Strength] 500 mg tablet 500 mg PO Q6H PRN Referrals: Neli Beavers MD [Primary Care Provider] - (Elevated blood pressure readings, dizziness) Discharge Date/Time: 11/12/23 11:00
--- NOTE | 2023-11-12 08:39 | ECG_ITS ---
Test Reason : Hypertension Blood Pressure : / mmHG Vent. Rate : 070 BPM Atrial Rate : 070 BPM P-R Int : 134 ms QRS Dur : 076 ms QT Int : 408 ms P-R-T Axes : 065 012 066 degrees QTc Int : 440 ms Normal sinus rhythm with sinus arrhythmia Nonspecific T wave abnormality Abnormal ECG No previous ECGs available Referred By: Titi Forde Electronically Signed By:KATELYN SETH MD
[2023-11-12 09:09] VITALS: BP 143/99; PULSE 76; RESP 14; TEMP 37.1; O2SAT 98
[2023-11-12 09:26] LABS: Basophils Absolute Auto 0.1 X10*3/uL (0.0-0.2); Basophils Percent Auto 0.7 % (0-2); Eosinophils Absolute Auto 0.1 X10*3/uL (0.0-0.4); Eosinophils Percent Auto 0.8 % (0-4); Hematocrit 45.4 % (37.0-47.0); Hemoglobin 15.9 g/dl (12.0-16.0); Imm Gran Abs Auto 0.03 X10*3/uL (0.00-0.03); Imm Gran Pct Auto 0.4 % (0.0-0.4); Lymphocytes Absolute Auto 1.4 X10*3/uL (1.2-4.9); Lymphocytes Percent Auto 19.1 % (20-40); MANUAL DIFF FLAG NO; Mean Corpuscular Hemoglobin 30.4 pg (27.0-33.0); Mean Corpuscular Volume 86.8 fL (80.0-98.0); Mean Platelet Volume 7.9 fL (9.4-12.3); Monocytes Absolute Auto 0.5 X10*3/uL (0.1-1.2); Monocytes Percent Auto 7.5 % (2-11); Neutrophils Absolute Auto 5.1 x10*3/uL (2.0-8.3); Neutrophils Percent Auto 71.5 % (45-73); Platelet Count 309 X10*3/uL (160-400); Red Blood Count 5.23 X10*6/uL (4.20-5.50); Red Cell Distribution Width 12.9 % (11.0-16.0); White Blood Count 7.2 X10*3/uL (4.8-10.8)
[2023-11-12 09:42] LABS: Alanine Aminotransferase 9 U/L (0-31); Albumin Level 4.3 g/dL (3.5-5.0); Alkaline Phosphatase 84 U/L (39-117); Anion Gap 11 (12-20); Aspartate Amino Transferase 14 U/L (5-31); Bilirubin Direct 0.2 mg/dL (0.0-0.5); Bilirubin Total 0.6 mg/dL (0.0-1.0); Blood Urea Nitrogen 14 mg/dL (9-16); Calcium 9.7 mg/dL (8.4-10.2); Carbon Dioxide 25 mmol/L (22-29); Chloride 109 mmol/L (96-108); Creatinine Clr Calc Pharmacy 65.4; Estimated Glomerular Filt Rate > 60; Glucose Random 95 mg/dL (60-115); Magnesium 2.1 mg/dL (1.6-2.6); Potassium 3.7 mmol/L (3.3-5.1); Sodium 141 mmol/L (135-145); Total Protein 7.1 g/dL (6.5-8.0)
[2023-11-12 09:47] LABS: B Type Natriuretic Peptide 21 pg/mL (<100)
[2023-11-12 10:02] LABS: Troponin-I High Sensitivity < 2.7 ng/L (<3.5-17.0)
[2023-11-12 10:55] VITALS: BP 126/97; PULSE 74; RESP 16; TEMP 36.3; O2SAT 98
== END 2023-11-12 11:00 | disposition home or self-care (01) ==
PROVIDERS: Emergency Provider Emergency Medicine; PCP Internal Medicine
DX: R42 Dizziness and giddiness (principal); I10 Essential (primary) hypertension; F17.210 Nicotine dependence, cigarettes, uncomplicated
CPT/HCPCS: 36415; 80048; 80076; 83735; 83880; 84484; 85025; 93005; 99283; 99284

== ENCOUNTER → 2023-11-12 08:39 | Outpatient (BNV) | payer MEDICARE, MEDICAID, SELFPAY | PROVIDERS: Emergency Provider Emergency Medicine; PCP Internal Medicine; Visit Provider Internal Medicine Cardiovascular Disease | DX: R94.31 Abnormal electrocardiogram [ECG] [EKG] (principal) | CPT/HCPCS: 93010 ==

== ENCOUNTER 2023-12-09 10:19 | Outpatient (AMB) | payer MEDICARE, MEDICAID, SELFPAY ==
[2023-12-09 11:08] VITALS: BP 102/80; PULSE 84; O2SAT 97; BMI 19.4
--- NOTE | 2023-12-09 11:08 | MHC.PC.OV ---
Vital Signs 12/09/23 11:08 Height 5 ft 2 in Weight 106 lb BMI 19.4 BP 102/80 Blood Pressure Location Rt brachial Position Sitting Pulse 84 Pulse Source Pulse Oximeter Pulse Oximetry (%) 97 Oxygen Delivery Method Room Air Intake Visit Reasons: Followup GERD Intake Note: Pt is here today o f/u GERD: also pt c/o upper muscle back discomfort Allergies aspirin [ASA] Adverse Reaction (Verified 03/11/24 10:10) Unknown Medication List - Last Reconciled 12/09/23 by Neli Beavers MD acetaminophen (Tylenol Extra Strength) 500 mg PO Q6H PRN lisinopril 5 mg PO DAILY omeprazole 20 mg PO DAILY Tobacco use date assessed: 12/09/23 Dental Screening Dental Screen Date: 12/09/23 Did you have a dental visit in the last 12 months?: No Was dental information given to patient?: No HPI Followup GERD HPI Details 63-year-old lady here today for follow-up on her heartburn, currently stable controlled on omeprazole 20 mg taken once a day. Has hypertension currently stable controlled on lisinopril taken 5 mg once a day unfortunately continues to smoke cigarettes, with no desire to quit at present time. Has hyperlipidemia as seen on last blood work done a year ago which showed LDL cholesterol at 154 mg/dL. Complains of intermittent aching pain on right upper back, no accompanying weakness, no numbness tingling or decreased range of motion right upper extremity reported. Has been taking Tylenol which has been helping. [facility] Medical History Hyperlipidemia Chronic heartburn Chronic left shoulder pain Trichomonas contact, treated Cervical disc disease Hypercalcemia Depression Cigarette smoker one half pack a day or less Gastritis Carpal tunnel syndrome, bilateral Essential hypertension Surgical History H/O tubal ligation Previous section Hx of tonsillectomy Family History Father HTN (hypertension) Social History Household Members Other:: roomate Housing: Apartment Alcohol intake: current Alcohol intake frequency: does not drink Patient Tobacco Use Status: Current someday Tobacco user Cigarettes Per Day: 1 Years Smoked: 45 e-Cigarette/Vaping Use: Former Use Current occupational status: unemployed and disabled Current occupation: rt hand Cognitive needs: No Hearing needs: No Vision needs: Yes Questionnaire PHQ-9 Over the last 2 weeks, how often have you been bothered by any of the following problems? 1. Little interest or pleasure in doing things: several days 2. Feeling down, depressed, or hopeless: several days 3. Trouble falling or staying asleep, or sleeping too much: several days 4. Feeling tired or having little energy: several days 5. Poor appetite or overeating: several days 6. Feeling bad about yourself - or that you are a failure or have let yourself or your family down: not at all 7. Trouble concentrating on things, such as reading the newspaper or watching television: not at all 8. Moving or speaking so slowly that other people could have noticed. Or the opposite - being so fidgety or restless that you have been moving around a lot more than usual: not at all 9. Thoughts that you would be better off or of hurting yourself in some way: not at all Total score: 5 Depression Screening Interpretation: Positive Depression Screening Follow-up: Existing condition, In treatment and Community Mental Health Worker F/U Depression Screening Done: Yes 66367 - PHQ-9 Billing: Yes Source: Developed by Drs. Edgardo Peguero, Jolene Melissa, Kennedy Solares and colleagues, with an educational tona from [employer]. Thrive Questionnaire Date Thrive assessed: 12/09/23 I am a: Patient What is your living situation today?: I have a steady place to live Within the past 12 months, did the food you bought not last and you didn't have the money to get more?: Never true Within the past 12 months, did you worry whether your food would run out before you got money to buy more?: Never true Do you have trouble paying for medicines?: No Do you have trouble getting transportation to medical appointments?: No Do you have trouble paying your heating and electricity bill?: No Do you have trouble taking care of your child, family member or friend?: No Do you have trouble with day-to-day activities such as bathing, preparing meals, shopping, managing finances, etc.?: No Are you currently unemployed and looking for a job?: No Are you interested in more education?: Yes THRIVE Score: 0 AUDIT C Alcohol Use Questionnaire (AUDIT-C) 1. How often do you have a drink containing alcohol?: Never Total Score: 0 REYNALDO-7 AMB Questionnaire REYNALDO-7 Date REYNALDO - 7 assessed: 12/09/23 Feeling nervous, anxious, or on edge: 1 = Several days Not being able to stop or control worryin = Not at all Worrying too much about different things: 1 = Several days Trouble relaxin = Not at all Being so restless that it is hard to sit still: 0 = Not at all Becoming easily annoyed or irritable: 0 = Not at all Feeling afraid as if something awful might happen: 1 = Several days Total REYNALDO-7 score (0-4 normal; 5-9 mild; 10-14 moderate; 15-21 severe): 3 Source: Developed by Drs. Edgardo Peguero, Jolene Melissa, Kennedy Solares and colleagues, with an educational tona from [employer]. REYNALDO-7 Assessment Billing REYNALDO-7 Assessment Tool: REYNALDO-7 Assessment 91704 Review of Systems Const Denies fever(s), Denies headache(s) and Denies weakness Eyes Denies change in vision ENT Denies dizziness, Denies headache(s), Denies nasal congestion, Denies nasal discharge and Denies sore throat Card Denies chest pain, Denies lightheadedness, Denies palpitations and Denies dyspnea Resp Denies chest congestion, Denies cough, Denies dyspnea and Denies wheezing GI Denies abdominal pain, Denies change in bowel habits and Denies heartburn Denies hematuria, Denies urinary frequency, Denies dysuria and Denies urinary urgency Musc Reports stiffness Skin/Breast Denies breast pain, Denies breast mass, Denies lesions and Denies rash Neuro Denies dizziness, Denies headache(s) and Denies weakness Psych Reports no additional complaints Endo Denies polydipsia, Denies polyuria and Denies palpitations Kip/Lymph Reports no additional complaints Aller/Immun Denies seasonal rhinorrhea and Denies wheezing Physical exam (Primary Care) Vital Signs: Last Vital Signs Pulse 84 12/09/23 11:08 BP 102/80 12/09/23 11:08 Pulse Ox 97 12/09/23 11:08 Oxygen Delivery Method Room Air 12/09/23 11:08 BMI result Body Mass Index 19.4 Tobacco/Smoking Status: Tobacco use Status Tobacco use date assessed 12/09/23 12/09/23 11:15 Patient Tobacco Use Status Current someday Tobacco 12/09/23 11:15 e-Cigarette/Vaping Use Former Use 12/09/23 11:15 PHQ-9: PHQ-9 Score PHQ-9: Total score 6 12/09/23 12:07 Depression Screening Interpretation: Positive Depression Screening Follow-up: Existing condition, In treatment and Community Mental Health Worker F/U Thrive Assessment: Date of Thrive Assessment Date Thrive assessed 12/09/23 12/09/23 12:07 Const General: comfortable and no acute distress Nutritional Appearance: average body habitus Orientation/consciousness: patient oriented x3 HENMT Head: Yes atraumatic General nose exam: Normal external nose present Face and sinus: Yes face symmetric Mouth: Normal oral and palatal mucosa present, oropharynx normal and moist mucous membranes Neck Neck: Yes full ROM, Yes no lymphadenopathy and Yes supple Thyroid: Thyroid normal Resp Effort & Inspection: normal respiratory effort Auscultation: clear to auscultation bilaterally Cardio Rate: regular rate Rhythm: regular rhythm Heart sounds: S1 normal heart sound present and S2 normal heart sound present GI Palpation (GI): Soft to palpation, nontender, no guarding and no masses Back/Spine/Pelvis Other: Slight tenderness on palpation over right trapezius, no gross bone deformity or joint swelling, full range of motion in right shoulder joint Skin General skin exam: no rashes or lesions noted Neuro General: patient oriented x3, gait normal, tone normal, moves all extremities, Normal light touch and pain sensation, no focal motor deficits and CN's II-XI intact bilaterally Extrem Other: T General: Yes normal to inspection, Yes full ROM and Yes no clubbing, cyanosis or edema Assessment and Plan Assessment & Plan (1) Essential hypertension: Code(s): I10 - Essential (primary) hypertension Plan: Blood pressure stable controlled on lisinopril continue with 5 mg daily, reinforced importance of following a low-salt diet and smoking cessation (2) Chronic heartburn: Code(s): R12 - Heartburn Plan: Heartburn controlled with omeprazole 20 mg taken once a day, will continue, refill sent, avoidance of triggers for heartburn and advised to stop smoking (3) Hyperlipidemia: Code(s): E78.5 - Hyperlipidemia, unspecified Plan: Previous lipids showed LDL cholesterol at 154 mg/dL. Advised to follow a low-cholesterol diet, will repeat another fasting lipid panel (4) Muscle strain of right upper back: Code(s): S29.012A - Strain of muscle and tendon of back wall of thorax, initial encounter Plan: Continue taking Tylenol extra strength 500 mg every 6 hours as needed, may apply [id number] Salonpas patch to affected area on upper back. Return to clinic if no improvement of symptoms Orders: Orders Lipid Panel 12/09/23 I10 - Essential (primary) hypertension, Z78.0 - Asymptomatic menopausal state, E78.5 - Hyperlipidemia, unspecified Vitamin D 25-OH Total 12/09/23 I10 - Essential (primary) hypertension, Z78.0 - Asymptomatic menopausal state, E78.5 - Hyperlipidemia, unspecified Medications: Changed From omeprazole 20 mg PO DAILY 90 caps 0RF To omeprazole 20 mg PO DAILY PRN 90 caps 1RF heartburn Refilled lisinopril 5 mg PO DAILY 90 tabs 3RF Coding Level of Care Code Est Pt Level 4 (48139) Complex EM visit Add On G2211 Diagnoses Essential hypertension I10 Chronic heartburn R12 Hyperlipidemia E78.5 Muscle strain of right upper back S29.012A Additional Codes REYNALDO-7 Assessment Billing - REYNALDO-7 Assessment Tool: REYNALDO-7 Assessment [id number] ([id number])
== END 2023-12-09 11:56 | disposition home or self-care (01) ==
PROVIDERS: PCP Internal Medicine; Visit Provider Internal Medicine
DX: I10 Essential (primary) hypertension (principal); R12 Heartburn; E78.5 Hyperlipidemia, unspecified; S29.012A Strain of muscle and tendon of back wall of thorax, initial encounter
CPT/HCPCS: 99499

== ENCOUNTER 2024-01-25 20:09 | Emergency (ER) | payer MEDICARE, MEDICAID, SELFPAY ==
--- NOTE | ~2024-01-25 | XR_ITS ---
EXAMINATION: CHEST 2 VIEWS CLINICAL INFORMATION: CP, SOB. COMPARISON: No recent pertinent prior studies are available for comparison. TECHNIQUE: PA and lateral views of the chest obtained. FINDINGS: The lungs are well expanded. No focal infiltrate, effusion, edema, or pneumothorax. Cardiac and mediastinal silhouettes are within normal limits for size. Vascular calcification within the tortuous aorta. No acute bony abnormality seen XR/XR chest 2V IMPRESSION: No evidence of acute disease.
--- NOTE | 2024-01-25 20:13 | ECG_ITS ---
Test Reason : chest pain Blood Pressure : / mmHG Vent. Rate : 081 BPM Atrial Rate : 081 BPM P-R Int : 124 ms QRS Dur : 076 ms QT Int : 382 ms P-R-T Axes : 056 008 063 degrees QTc Int : 443 ms Normal sinus rhythm Normal ECG When compared with ECG of 12-NOV-2023 09:04, No significant change was found Referred By: Generic ED Physician Electronically Signed By:MELONIE HELMS
[2024-01-25 20:15] VITALS: BP 121/88; BP 136/86; PULSE 70; PULSE 96; RESP 16; TEMP 36.8; O2SAT 95; O2SAT 96; BMI 18.9
--- NOTE | 2024-01-25 20:38 | ED.CHESTPAIN ---
HPI - Chest Pain General Chief Complaint: Chest Pain Stated Complaint: 04/20 chest pain, possible aspirin allergy, HTN Time Seen by Provider: 01/25/24 20:16 Source: patient Mode of arrival: EMS Limitations: no limitations History of Present Illness HPI narrative: Patient is a 63-year-old female who presents to the emergency department via EMS for evaluation of chest pain. She reports onset of diffuse anterior chest pain 4 days ago that is constant in nature and associated with feelings of difficulty breathing, heart palpitations. Her pain is described as a pressure/heaviness. She states that the pain began while she was having a meeting with her roommate and both of their case workers. She reports that her roommate whom she is very kind to and has done many fevers for was accusing her of ?bad things? and this upset her a great deal. She states that she has been very stressed out about this over the past 4 days. She does report that she has tried to ?calm myself down? but reports that her pain has continued. She felt the pain was worse today after awaking from a nap which prompted her to EMS. She does admit to having a headache at this time as well, it is unclear whether this began after the sublingual nitroglycerin the EMS had administered, she denies having had a headache over the past 4 days. She denies dizziness, lightheadedness, vision changes, neck pain, nausea, vomiting, abdominal pain, numbness or tingling of her extremities. Related Data Home Medications ?Medication ?Instructions ?Recorded ?Confirmed acetaminophen 500 mg tablet 500 mg PO Q6H PRN 07/31/23 07/31/23 (Tylenol Extra Strength) Previous Rx's ?Medication ?Instructions ?Recorded lisinopril 5 mg tablet 5 mg PO DAILY #90 tabs 12/09/23 omeprazole 20 mg capsule,delayed 20 mg PO DAILY PRN heartburn #90 12/09/23 release caps hydroxyzine HCl 25 mg tablet 25 mg PO TID PRN anxiety #14 tabs 01/25/24 Allergies Allergy/AdvReac Type Severity Reaction Status Date / Time aspirin [ASA] AdvReac Unknown Verified 01/25/24 20:19 Review of Systems Review of Systems: Yes all other systems are reviewed and are negative PMFSH Past Medical History Attestation statement: The following information was validated with the patient. Source: old records reviewed Medical History Hyperlipidemia Chronic heartburn Chronic left shoulder pain Trichomonas contact, treated Cervical disc disease Hypercalcemia Depression Cigarette smoker one half pack a day or less Gastritis Carpal tunnel syndrome, bilateral Essential hypertension Surgical History H/O tubal ligation Previous section Hx of tonsillectomy Family History Family History Father HTN (hypertension) Social History Social History Household Members Other:: roomate Housing: Apartment Alcohol intake: current Alcohol intake frequency: does not drink Patient Tobacco Use Status: Current someday Tobacco user Cigarettes Per Day: 1 Years Smoked: 45 Smoked in Last 30 Days: No e-Cigarette/Vaping Use: Former Use Use of substances other than those prescribed or required for medical reasons: No Advance Directives: No Advance Directives Information Provided: No Current occupational status: unemployed and disabled Current occupation: rt hand Cognitive needs: No Hearing needs: No Vision needs: Yes Physical Exam Vital Signs: Vital Signs: Last Vital Signs Temp 98.2 F 01/25/24 20:15 Pulse 70 01/25/24 20:15 Resp 16 01/25/24 20:15 BP 121/88 01/25/24 20:15 Pulse Ox 95 01/25/24 20:15 O2 Del Method Room Air 01/25/24 20:15 BMI result Body Mass Index 18.9 Appearance: Alert.?Oriented to person, place and time. No acute distress.?Normal affect. Eyes: Pupils equal, round and reactive to light.? ENT: Pharynx normal.?? Neck: Normal inspection.? Neck supple.?? CVS: Heart sounds normal. Normal heart rate and rhythm.? Pulses normal.?? Respiratory: No respiratory distress.? Lung sounds clear to auscultation bilaterally?? Abdomen: Soft and non-tender. Normoactive bowel sounds. Skin: Skin warm and dry.? Normal skin color.? ? Extremities: No lower extremity edema.? No calf ttp? Neuro: Moves all extremities spontaneously. Sensation intact bilaterally. CN II-XII intact. No focal neuro deficits. Ambulates with normal steady gait. Course Reevaluation(s) Reevaluation #1: CBC is without leukocytosis or anemia, no thrombocytosis or thrombocytopenia. No significant electrolyte derangement, no LINETTE. Transaminases are within normal range. High sensitive troponin is below detectable limits, EKG is without acute ischemic findings, appears consistent with prior EKG, given duration of symptoms for 4 days, do not suspect pain secondary to ACS. CXR is without acute pulmonary findings. Viral testing is negative. Pain has completely resolved. I anticipate that her symptoms part due to anxiety/stress reaction. At this time feel she is stable for discharge home, discussed outpatient follow-up with her primary care provider, strict return precautions, trial of hydroxyzine for anxiety. All questions answered. Medications Administered Discontinued Medications Generic Name Dose Route Start Last Admin Trade Name Freq PRN Reason Stop Dose Admin Acetaminophen 975 mg 01/25/24 20:51 01/25/24 21:15 Acetaminophen 325 Mg Tablet PO 01/25/24 20:52 975 mg ONCE ONE Administration Lorazepam 1 mg 01/25/24 20:51 01/25/24 21:15 Lorazepam 1 Mg Tablet PO 01/25/24 20:52 1 mg ONCE ONE Administration Medical Decision Making Medical Decision Making [facility] Narrative: Patient is a 63-year-old female with past medical history of hyperlipidemia, GERD, gastritis, hypertension, cervical disc disease, depression who presents to the emergency department for evaluation of chest pain as per HPI. Overall she is well-appearing, nontoxic, afebrile. She is without tachycardia, tachypnea or hypoxia. There is no respiratory distress. Will obtain CBC to evaluate for leukocytosis/ anemia, CMP and lipase to evaluate for abnormal electrolytes /abnormal renal function/ abnormal hepatic/biliary function, EKG and troponin to evaluate for ischemia/ACS. Chest x-ray to evaluate for consolidation/ infiltrate/ mass/ pulmonary congestion. She received nitro sublingual pre-hospital via EMS without any change to her pain. She reports an allergy to aspirin described as excessive bleeding particularly during her menstruation when she was a younger child, declines aspirin administration at this time. Differential Diagnosis Differential Diagnoses: The differential diagnosis associated with the presentation includes (See narrative above; wells negative, less likely PE) Admission/Observation Consideration of admission/observation: Escalation of care including admission/observation considered (See narrative above and course narrative for further detail) Lab Data [facility] Lab Attestation statement: I reviewed the patient's lab results. (See course narrative) 01/25/24 20:39 01/25/24 20:39 Labs: Lab Results 01/25/24 01/25/24 Range/Units 20:39 21:17 WBC 9.0 (4.8-10.8) X10*3/uL RBC 4.70 (4.20-5.50) X10*6/uL Hgb 14.2 (12.0-16.0) g/dl Hct 40.7 (37.0-47.0) % MCV 86.6 (80.0-98.0) fL MCH 30.2 (27.0-33.0) pg MCHC 34.9 (31.0-35.0) g/dl RDW 13.3 (11.0-16.0) % Plt Count 341 (160-400) X10*3/uL MPV 8.0 L (9.4-12.3) fL Immature Gran % (Auto) 0.2 (0.0-0.4) % Neut % (Auto) 66.6 (45-73) % Lymph % (Auto) 21.8 (20-40) % Carver % (Auto) 9.6 (2-11) % Eos % (Auto) 1.1 (0-4) % Baso % (Auto) 0.7 (0-2) % Lymph # (Auto) 2.0 (1.2-4.9) X10*3/uL Carver # (Auto) 0.9 (0.1-1.2) X10*3/uL Eos # (Auto) 0.1 (0.0-0.4) X10*3/uL Baso # (Auto) 0.1 (0.0-0.2) X10*3/uL Abs Immat Gran (auto) 0.02 (0.00-0.03) X10*3/uL Absolute Neuts (auto) 6.0 (2.0-8.3) x10*3/uL Absolute Nucleated RBC 0.000 (0.0-0.012) X10*3/uL Nucleated RBC % (auto) 0.0 (0.0-0.2) /100WBC Sodium 143 (135-145) mmol/L Potassium 3.3 (3.3-5.1) mmol/L Chloride 112 H (96-108) mmol/L Carbon Dioxide 21 L (22-29) mmol/L Anion Gap 13 (12-20) BUN 14 (9-16) mg/dL Creatinine 0.72 (0.5-1.4) mg/dL Estim Creat Clear Calc 60.9 Estimated GFR > 60 Random Glucose 106 (60-115) mg/dL Calcium 9.8 (8.4-10.2) mg/dL Total Bilirubin 0.5 (0.0-1.0) mg/dL AST 15 (5-31) U/L ALT 9 (0-31) U/L Alkaline Phosphatase 84 (39-117) U/L Troponin I High Sens < 2.7 (<3.5-17.0) ng/L Total Protein 7.0 (6.5-8.0) g/dL Albumin 4.1 (3.5-5.0) g/dL Influenza Type A (PCR) NEGATIVE (Negative) Influenza Type B (PCR) NEGATIVE (Negative) RSV RNA Qual (PCR) NEGATIVE (Negative) SARS-CoV-2 RNA (RT-PCR) NEGATIVE (Negative) Independent Interpretation I performed an independent interpretation of an: EKG and Plain X-Ray (No pneumonia) Interpretation: Rate: 81 Rhythm:? Normal sinus rhythm Gautier:? Normal Normal P waves.? Normal WILFRIDO.?? Normal QRS complex.?? ST T wave :??No ST elevation, no ST depression, no T-wave inversion qTC: 443 prior studies:? November 2023, no acute changes The study has been interpreted contemporaneously by me. Radiology Impression Discussion of test interpretation with radiology: I have reviewed the radiologist's reading. Radiologist Impression: XR/XR chest 2V IMPRESSION: No evidence of acute disease. Independent Historian Clinical information obtained from an independent historian. History obtained from or confirmed by: EMS External Record Review External record reviewed: Outpatient record Discharge Plan Discharge Clinical Impression: Chest pain, Stress reaction Patient Disposition: Home, Self-Care Instructions: Stress (ED), Noncardiac Chest Pain (ED) Additional Instructions: Please contact your primary care provider to arrange for a follow-up visit within 3 days. Trial hydroxyzine as needed to help with anxiety. You may return back to emergency department any new or worsening symptoms or concerns. Prescriptions: New hydroxyzine HCl 25 mg tablet 25 mg PO TID PRN (Reason: anxiety) Qty: 14 0RF No Action lisinopril 5 mg tablet 5 mg PO DAILY Qty: 90 3RF omeprazole 20 mg capsule,delayed release(DR/EC) 20 mg PO DAILY PRN (Reason: heartburn) Qty: 90 1RF acetaminophen [Tylenol Extra Strength] 500 mg tablet 500 mg PO Q6H PRN Referrals: Neli Beavers MD [Primary Care Provider] - Print Language: Mongolian
[2024-01-25 20:43] LABS: MANUAL DIFF FLAG NO
[2024-01-25 20:44] LABS: Basophils Absolute Auto 0.1 X10*3/uL (0.0-0.2); Basophils Percent Auto 0.7 % (0-2); Eosinophils Absolute Auto 0.1 X10*3/uL (0.0-0.4); Eosinophils Percent Auto 1.1 % (0-4); Hematocrit 40.7 % (37.0-47.0); Hemoglobin 14.2 g/dl (12.0-16.0); Imm Gran Abs Auto 0.02 X10*3/uL (0.00-0.03); Imm Gran Pct Auto 0.2 % (0.0-0.4); Lymphocytes Percent Auto 21.8 % (20-40); Mean Corpuscular HGB Conc 34.9 g/dl (31.0-35.0); Mean Corpuscular Hemoglobin 30.2 pg (27.0-33.0); Mean Corpuscular Volume 86.6 fL (80.0-98.0); Monocytes Absolute Auto 0.9 X10*3/uL (0.1-1.2); Monocytes Percent Auto 9.6 % (2-11); Neutrophils Percent Auto 66.6 % (45-73); Platelet Count 341 X10*3/uL (160-400); Red Cell Distribution Width 13.3 % (11.0-16.0)
[2024-01-25 21:04] LABS: Alanine Aminotransferase 9 U/L (0-31); Albumin Level 4.1 g/dL (3.5-5.0); Alkaline Phosphatase 84 U/L (39-117); Anion Gap 13 (12-20); Aspartate Amino Transferase 15 U/L (5-31); Bilirubin Total 0.5 mg/dL (0.0-1.0); Blood Urea Nitrogen 14 mg/dL (9-16); Calcium 9.8 mg/dL (8.4-10.2); Carbon Dioxide 21 mmol/L (22-29); Chloride 112 mmol/L (96-108); Creatinine Clr Calc Pharmacy 60.9; Estimated Glomerular Filt Rate > 60; Glucose Random 106 mg/dL (60-115); Potassium 3.3 mmol/L (3.3-5.1); Sodium 143 mmol/L (135-145)
[2024-01-25 21:15] LABS: Troponin-I High Sensitivity < 2.7 ng/L (<3.5-17.0)
[2024-01-25] MEDS: LORazepam 1 MG TABLET PO (21:15)
[2024-01-25] MEDS: Acetaminophen 325 MG TABLET 975 MG PO (21:15)
[2024-01-25 21:20] VITALS: PULSE 85
[2024-01-25 21:59] LABS: Influenza A PCR NEGATIVE (Negative); Influenza B PCR NEGATIVE (Negative); Resp Syncy Virus RNA Qual PCR NEGATIVE (Negative); SARS COV2 PCR INHOUSE NEGATIVE (Negative)
[2024-01-26 00:30] VITALS: BP 116/75; PULSE 82; RESP 19; TEMP 36.8; O2SAT 97
== END 2024-01-26 00:31 | disposition home or self-care (01) ==
PROVIDERS: Nurse Practitioner Family; Emergency Provider Emergency Medicine; PCP Internal Medicine
DX: R07.9 Chest pain, unspecified (principal); F43.9 Reaction to severe stress, unspecified; I10 Essential (primary) hypertension; Z03.818 Encounter for observation for suspected exposure to other biological agents ruled out
CPT/HCPCS: 0241U; 36415; 71046; 80053; 84484; 85025; 93005; 99283; 99285

== ENCOUNTER → 2024-01-25 20:13 | Outpatient (BNV) | payer MEDICARE, MEDICAID, SELFPAY | PROVIDERS: Emergency Provider Emergency Medicine; PCP Internal Medicine; Visit Provider Internal Medicine | DX: R07.9 Chest pain, unspecified (principal) | CPT/HCPCS: 93010 ==

== ENCOUNTER 2024-08-11 17:20 | Emergency (ER) | payer MEDICARE, MEDICAID, SELFPAY ==
--- NOTE | ~2024-08-11 | XR_ITS ---
EXAMINATION: XR SHOULDER, LEFT CLINICAL INFORMATION: Pain COMPARISON: Chest radiograph 01/25/2024 TECHNIQUE: AP external rotation, Grashey, scapular Y, and axillary views of the left shoulder. FINDINGS: The bones and soft tissues are normal. No fracture. Glenohumeral and acromioclavicular alignment is anatomic with mild joint space narrowing and spurring in the inferior humeral head and glenoid. No abnormal soft tissue calcifications. XR/XR shoulder LT min 2V IMPRESSION: Mild degenerative change in the left shoulder. No fracture. Electronically signed by: Edgardo Lara MD 08/11/2024 06:00 PM EDT
[2024-08-11 17:25] VITALS: BP 134/88; PULSE 77; RESP 16; TEMP 36.8; O2SAT 98; BMI 19.5
--- NOTE | 2024-08-11 17:28 | ED_ITS ---
HPI - General Adult General Chief complaint: Extremity Injury, Upper Stated complaint: Left shoulder pain Time Seen by Provider: 08/11/24 18:09 Source: patient, RN notes reviewed and old records reviewed Mode of arrival: ambulatory Limitations: no limitations History of Present Illness ED Provider: Arlyn EUGENE narrative: 63-year-old female with past medical history significant for hyperlipidemia, GERD, depression, hypertension presents for evaluation of left shoulder pain. Her pain radiates into her left upper arm. The pain has been present for about 2 weeks. She denies any specific injury. Her pain is worse when she lifts her arm up over her head Denies any chest pain or shortness of breath Her pain is a 6/10. No other complaints or concerns at this time Related Data Home Medications ?Medication ?Instructions ?Recorded ?Confirmed acetaminophen 500 mg tablet 500 mg PO Q6H PRN 07/31/23 07/31/23 (Tylenol Extra Strength) Previous Rx's ?Medication ?Instructions ?Recorded lisinopril 5 mg tablet 5 mg PO DAILY #90 tabs 12/09/23 hydroxyzine HCl 25 mg tablet 25 mg PO TID PRN anxiety #14 tabs 01/25/24 omeprazole 20 mg capsule,delayed 20 mg PO DAILY PRN heartburn #30 03/15/24 release caps cyclobenzaprine 5 mg tablet 5 mg PO TID PRN muscle spasm #20 08/11/24 tabs Allergies Allergy/AdvReac Type Severity Reaction Status Date / Time aspirin [ASA] AdvReac Unknown Verified 08/11/24 17:26 Review of Systems Constitutional: Constitutional: Denies body ache(s), Denies chills and Denies headache(s) Eyes: Eyes: Denies blurry vision ENT: Denies headache(s) Cardiovascular: Cardiovascular: Denies chest pain and Denies dyspnea Respiratory: Respiratory: Denies cough and Denies dyspnea Gastrointestinal: Gastrointestinal: Denies abdominal pain, Denies nausea and Denies vomiting Musculoskeletal: Musculoskeletal: Reports arthralgias, Denies joint swelling and Denies limited range of motion Integumentary/Breasts: Skin/Breast: Denies rash Neurologic: Denies headache(s) [facility] Past Medical History Medical History Hyperlipidemia Chronic heartburn Chronic left shoulder pain Trichomonas contact, treated Cervical disc disease Hypercalcemia Depression Cigarette smoker one half pack a day or less Gastritis Carpal tunnel syndrome, bilateral Essential hypertension Surgical History H/O tubal ligation Previous section Hx of tonsillectomy Family History Family History Father HTN (hypertension) Social History Social History Household Members Other:: roomate Housing: Apartment Alcohol intake: current Alcohol intake frequency: does not drink Patient Tobacco Use Status: Current someday Tobacco user Cigarettes Per Day: 1 Years Smoked: 45 e-Cigarette/Vaping Use: Former Use Current occupational status: unemployed and disabled Current occupation: rt hand Cognitive needs: No Hearing needs: No Vision needs: Yes Physical Exam ED Vital Signs: Vital Signs - 24 hr 08/11/24 17:25 Temperature 98.2 F Pulse Rate 77 Respiratory Rate 16 Blood Pressure 134/88 Pulse Oximetry 98 Oxygen Delivery Method Room Air BMI result Body Mass Index 19.5 Const General: healthy appearing, comfortable, no acute distress, alert and awake Nutritional Appearance: well nourished Orientation/consciousness: patient oriented x3 HENMT Head: Yes normocephalic and Yes atraumatic Eyes Eyelids: Yes eyelids normal Conjunctivae: conjunctivae normal Sclerae: sclerae normal Corneas: corneas normal Pupils: Equal, round and reactive pupils present EOM: EOMs intact bilaterally Neck Neck: Yes full ROM Resp Effort & Inspection: normal respiratory effort, able to speak in complete sentences and not labored Cardio Rate: regular rate Rhythm: regular rhythm GI Inspection: No distended Palpation (GI): Soft to palpation, not firm, nontender, no guarding and not rigid Skin General skin exam: elasticity normal Neuro General: patient oriented x3 Cranial nerves: Yes Equal, round and reactive pupils present and Yes Bilaterally intact EOM present Cognition (Neuro): normal cognition Extrem Other: Moving all extremities well without any obvious deformities. The patient does have tenderness over the left bicipital groove. No palpable deformity. Course Course Course Narrative: RME, this is a rapid medical exam performed by Jenaro Stoddard please refer to primary provider for complete H&P- 63-year-old female presents for evaluation of atraumatic left shoulder pain. The pain started about 2 weeks ago. Her pain is worse with movement. Most likely musculoskeletal in origin. Plan for EKG, chest x-ray Medical Decision Making Medical Decision Making [facility]DM Narrative: 63-year-old female presents for evaluation of left shoulder pain that is worse with movement. She has no chest pain, shortness of breath. Findings are not consistent with ACS, however given her risk factors and age we will get an EKG for screening purposes. X-ray left shoulder shows mild degenerative changes. EKG was done shows normal sinus rhythm, no significant change when compared to previous from January of this year.. We will treat the patient with Tylenol and cyclobenzaprine as she has a history of chronic GERD, with a white until Differential Diagnosis Differential Diagnoses: The differential diagnosis associated with the presentation includes Osteoarthritis Left shoulder strain Muscle strain Radiculopathy Calcific tendinitis Independent Interpretation I performed an independent interpretation of an: EKG Interpretation: Normal sinus rhythm with a rate of [address] segment elevation or depressions. No significant change when compared to previous from January 25, 2024 Radiology Impression Discussion of test interpretation with radiology: I have reviewed the radiologist's reading. Radiologist Impression: FINDINGS: The bones and soft tissues are normal. No fracture. Glenohumeral and acromioclavicular alignment is anatomic with mild joint space narrowing and spurring in the inferior humeral head and glenoid. No abnormal soft tissue calcifications. XR/XR shoulder LT min 2V IMPRESSION: Mild degenerative change in the left shoulder. No fracture. Electronically signed by: Edgardo Lara MD 08/11/2024 06:00 PM EDT Discharge Plan Discharge Clinical Impression: Acute pain of left shoulder Patient Disposition: Home, Self-Care Instructions: Shoulder Pain (ED) Additional Instructions: You may use Tylenol as needed for pain. You may use cyclobenzaprine as needed for muscle spasms. This may make you drowsy, do not drink alcohol or drive after taking it Your x-ray shows arthritis of the left shoulder Follow-up with your primary doctor, return for new or worsening symptoms Prescriptions: New cyclobenzaprine 5 mg tablet 5 mg PO TID PRN (Reason: muscle spasm) Qty: 20 0RF No Action omeprazole 20 mg capsule,delayed release(DR/EC) 20 mg PO DAILY PRN (Reason: heartburn) Qty: 30 0RF hydroxyzine HCl 25 mg tablet 25 mg PO TID PRN (Reason: anxiety) Qty: 14 0RF lisinopril 5 mg tablet 5 mg PO DAILY Qty: 90 3RF acetaminophen [Tylenol Extra Strength] 500 mg tablet 500 mg PO Q6H PRN Print Language: Latvian
--- NOTE | 2024-08-11 17:29 | ECG_ITS ---
Test Reason : PAIN Blood Pressure : / mmHG Vent. Rate : 084 BPM Atrial Rate : 084 BPM P-R Int : 148 ms QRS Dur : 076 ms QT Int : 376 ms P-R-T Axes : 073 003 075 degrees QTc Int : 444 ms Normal sinus rhythm with sinus arrhythmia Possible Left atrial enlargement Septal infarct , age undetermined - could be due to lead placement difference Abnormal ECG When compared with ECG of 25-JAN-2024 20:17, Septal infarct is now Present - see comment above Referred By: Carlos Alberto Stoddard Electronically Signed By:MELONIE HELMS
[2024-08-11 18:38] VITALS: BP 134/88; PULSE 77; RESP 16; TEMP 36.8; O2SAT 98
== END 2024-08-11 18:38 | disposition home or self-care (01) ==
PROVIDERS: Emergency Provider Emergency Medicine; PCP Internal Medicine
DX: M25.512 Pain in left shoulder (principal); I10 Essential (primary) hypertension; E78.5 Hyperlipidemia, unspecified; F17.210 Nicotine dependence, cigarettes, uncomplicated; Z79.899 Other long term (current) drug therapy
CPT/HCPCS: 73030; 93005; 99283

== ENCOUNTER → 2024-08-11 17:29 | Outpatient (BNV) | payer MEDICARE, MEDICAID, SELFPAY | PROVIDERS: Emergency Provider Emergency Medicine; PCP Internal Medicine; Visit Provider Internal Medicine | DX: I49.9 Cardiac arrhythmia, unspecified (principal) | CPT/HCPCS: 93010 ==

== ENCOUNTER 2024-11-01 14:57 | Emergency (ER) | payer MEDICARE, MEDICAID, SELFPAY ==
--- NOTE | 2024-11-01 15:22 | ED_ITS ---
HPI - General Adult General Chief complaint: Skin/Abscess/Foreign Body Stated complaint: Food stuck in throat Time Seen by Provider: 11/01/24 21:05 Source: patient Mode of arrival: ambulatory Limitations: no limitations History of Present Illness ED Provider: HPI narrative: Patient apparently had ribs yesterday and felt piece of small piece of meat stuck in the neck unable to drink or swallow solids spitting out her secretions also history of same about 4 years ago when GI had to remove the foreign body by endoscopy Related Data Home Medications ?Medication ?Instructions ?Recorded ?Confirmed acetaminophen 500 mg tablet 500 mg PO Q6H PRN 07/31/23 07/31/23 (Tylenol Extra Strength) Previous Rx's ?Medication ?Instructions ?Recorded lisinopril 5 mg tablet 5 mg PO DAILY #90 tabs 12/09/23 hydroxyzine HCl 25 mg tablet 25 mg PO TID PRN anxiety #14 tabs 01/25/24 omeprazole 20 mg capsule,delayed 20 mg PO DAILY PRN heartburn #30 03/15/24 release caps cyclobenzaprine 5 mg tablet 5 mg PO TID PRN muscle spasm #20 08/11/24 tabs Allergies Allergy/AdvReac Type Severity Reaction Status Date / Time aspirin [ASA] AdvReac Unknown Verified 11/01/24 15:25 Review of Systems Review of Systems: Yes all other systems are reviewed and are negative PMF Past Medical History Medical History Hyperlipidemia Chronic heartburn Chronic left shoulder pain Trichomonas contact, treated Cervical disc disease Hypercalcemia Depression Cigarette smoker one half pack a day or less Gastritis Carpal tunnel syndrome, bilateral Essential hypertension Surgical History H/O tubal ligation Previous section Hx of tonsillectomy Family History Family History Father HTN (hypertension) Social History Social History Household Members Other:: roomate Housing: Apartment Alcohol intake: current Alcohol intake frequency: holidays/special occasions only Patient Tobacco Use Status: Current someday Tobacco user Cigarettes Per Day: 1 Years Smoked: 45 Smoked in Last 30 Days: Yes e-Cigarette/Vaping Use: Former Use Use of substances other than those prescribed or required for medical reasons: Yes Substance Use Type: Marijuana Advance Directives: No Advance Directives Information Provided: No Do you have a plan to hurt others: No Plan Current occupational status: unemployed and disabled Current occupation: rt hand Cognitive needs: No Hearing needs: No Vision needs: Yes Physical Exam ED Vital Signs: Vital Signs - 24 hr 11/01/24 15:23 11/01/24 20:11 11/01/24 22:40 Temperature 97.7 F 98.0 F Pulse Rate 101 H 96 80 Respiratory Rate 18 16 18 Blood Pressure 135/100 H 128/94 H 138/80 Pulse Oximetry 97 98 98 Oxygen Delivery Method Room Air Room Air Room Air 11/01/24 22:44 Temperature 98 F Pulse Rate 80 Respiratory Rate 18 Blood Pressure 138/80 Pulse Oximetry 98 Oxygen Delivery Method Room Air BMI result Body Mass Index 18.9 Appearance: Alert. Oriented X3. No acute distress. ENT: Pharynx normal. Oral Mucosa moist Neck: Normal inspection. Neck supple. No stridor CVS: Normal heart rate and rhythm. Pulses normal. Respiratory: No respiratory distress. Equal air entry bilateral, no wheezing/rales/rhonchi Abdomen: Soft and nontender. Bowel sounds are present, no mass palpable, no CVA tenderness Skin: Skin warm and dry. Normal skin color. Normal skin turgor. Extremities: No lower extremity edema. No calf tenderness Neuro: Oriented X 3. No motor deficit. Course Course Course Narrative: This is a Rapid Medical Examination (RME) performed by Emanuel Moss PA-C in triage. Full HPI, ROS, assessment and treatment plan per primary provider in the Main ED. 64 y/o femlae iwth history of HLD, HTN, GERD who prsents to the ER for evaluation of food stuck in her throat since yesterday. She reports after eating vegetables and ribs she thinks she aspirated and the food got stuck in her throat. reports inability to eat or drink anything since, everything comes back up. last PO intake yesterday at 5pm. attempted water and soda today but did not tolerate. Plan: treat for food bolus, if unsuccessful GI consult Medical Decision Making Medical Decision Making MDM Narrative: Patient with foreign body in esophagus which came out after trial of EZ gas patient's spitted up the small piece of meat and able to swallow eat in the ER Differential Diagnosis Differential Diagnoses: The differential diagnosis associated with the presentation includes Discharge Plan Discharge Clinical Impression: Esophageal foreign body Patient Disposition: Home, Self-Care Instructions: Esophageal Foreign Body (ED) Additional Instructions: do not eat big pieces of meat chew properly before you eat 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
[2024-11-01 15:23] VITALS: BP 135/100; PULSE 101; RESP 18; TEMP 36.5; O2SAT 97; BMI 18.9
[2024-11-01 20:11] VITALS: BP 128/94; PULSE 96; RESP 16; TEMP 36.7; O2SAT 98
[2024-11-01 22:40] VITALS: BP 138/80; PULSE 80; RESP 18; O2SAT 98
[2024-11-01 22:44] VITALS: BP 138/80; PULSE 80; RESP 18; TEMP 36.6; O2SAT 98
== END 2024-11-01 22:45 | disposition home or self-care (01) ==
PROVIDERS: Emergency Provider Internal Medicine; PCP Internal Medicine
DX: T18.128A Food in esophagus causing other injury, initial encounter (principal); R09.89 Other specified symptoms and signs involving the circulatory and respiratory systems; F17.210 Nicotine dependence, cigarettes, uncomplicated; W44.F3XA Food entering into or through a natural orifice, initial encounter; Y93.9 Activity, unspecified; Y92.9 Unspecified place or not applicable; Y99.8 Other external cause status; Z79.899 Other long term (current) drug therapy
CPT/HCPCS: 99283; 99284

== ENCOUNTER 2025-02-15 10:42 | Outpatient (AMB) | payer MEDICARE, MEDICAID, SELFPAY ==
[2025-02-15 11:03] VITALS: BP 92/70; PULSE 61; RESP 16; TEMP 36.7; O2SAT 96; BMI 19.2
--- NOTE | 2025-02-15 11:03 | A.OFFPC_ITS ---
Vital Signs 02/15/25 11:03 Height 5 ft 2 in Weight 105 lb BMI 19.2 BP 92/70 Blood Pressure Location Lt brachial Position Sitting Respiration 16 Pulse 61 Pulse Source Pulse Oximeter Temp 98.1 F Temp Source Oral Pulse Oximetry (%) 96 Oxygen Delivery Method Room Air Intake Visit Reasons: b/p check med/ Lt shoulder pain Allergies aspirin [ASA] Adverse Reaction (Verified 02/15/25 11:24) Unknown Medication List - Last Reconciled 02/15/25 by Neli Beavers MD acetaminophen (Tylenol Extra Strength) 500 mg PO Q6H PRN cyclobenzaprine 5 mg PO BID hydroxyzine HCl 25 mg PO TID PRN loratadine (Claritin) 10 mg PO DAILY mometasone 50 mcg/actuation (Nasonex 24hr Allergy) 2 sprays intranasal DAILY omeprazole 20 mg PO DAILY PRN turmeric mg PO Tobacco use date assessed: 02/15/25 Dental Screening Dental Screen Date: 02/15/25 Did you have a dental visit in the last 12 months?: No Did you have a dental problem in the last 6 months where you did not have access to dental care?: No Was dental information given to patient?: No HPI b/p check med/ Lt shoulder pain HPI Details 64-year-old lady here today complaining of pain on anterior aspect of left shoulder. This has been present now for the last several months with no history of trauma or strenuous exertion. Unable to lift left arm overhead without list and pain. Has been taking [id number] anti-inflammatory medications affording only temporary relief. History depression, previously being seen by psychiatrist via telehealth. Requesting a refill on her hydroxyzine she takes only as needed for acute anxiety attacks. [facility] Medical History (Updated 02/26/25 @ 01:29 by Neli Beavers MD) Depression with anxiety Left shoulder pain Hyperlipidemia Chronic heartburn Chronic left shoulder pain Trichomonas contact, treated Cervical disc disease Hypercalcemia Depression Cigarette smoker one half pack a day or less Gastritis Carpal tunnel syndrome, bilateral Essential hypertension Surgical History H/O tubal ligation Previous section Hx of tonsillectomy Family History Father HTN (hypertension) Social History Household Members Other:: roomate Housing: Apartment Alcohol intake: current Alcohol intake frequency: holidays/special occasions only Patient Tobacco Use Status: Current someday Tobacco user Cigarettes Per Day: 1 Years Smoked: 45 e-Cigarette/Vaping Use: Currently Using Substance Use Type: Marijuana Current occupational status: unemployed and disabled Current occupation: rt hand Cognitive needs: No Hearing needs: No Vision needs: Yes Questionnaire PHQ-9 Over the last 2 weeks, how often have you been bothered by any of the following problems? 1. Little interest or pleasure in doing things: not at all 2. Feeling down, depressed, or hopeless: not at all 3. Trouble falling or staying asleep, or sleeping too much: several days 4. Feeling tired or having little energy: several days 5. Poor appetite or overeating: not at all 6. Feeling bad about yourself - or that you are a failure or have let yourself or your family down: not at all 7. Trouble concentrating on things, such as reading the newspaper or watching television: not at all 8. Moving or speaking so slowly that other people could have noticed. Or the opposite - being so fidgety or restless that you have been moving around a lot more than usual: not at all 9. Thoughts that you would be better off or of hurting yourself in some way: not at all Total score: 2 Depression Screening Interpretation: Negative Depression Screening Done: Yes 49816 - PHQ-9 Billing: Yes Source: Developed by Drs. Edgardo Peguero, Jolene Melissa, Kennedy Solares and colleagues, with an educational tona from [employer] Thrive Questionnaire Date Thrive assessed: 02/15/25 I am a: Patient What is your living situation today?: I have a steady place to live Within the past 12 months, did the food you bought not last and you didn't have the money to get more?: Sometimes True Within the past 12 months, did you worry whether your food would run out before you got money to buy more?: Sometimes True Do you have trouble paying for medicines?: No Do you have trouble getting transportation to medical appointments?: Yes Do you have trouble paying your heating and electricity bill?: No Do you have trouble taking care of your child, family member or friend?: No Do you have trouble with day-to-day activities such as bathing, preparing meals, shopping, managing finances, etc.?: Yes Are you currently unemployed and looking for a job?: No Are you interested in more education?: No Please select the resources that you would like help with: Transportation, Care for elder or disabled and None Currently or been in a relationship where the following occur: No concerns reported THRIVE Score: 3 AUDIT C Alcohol Use Questionnaire (AUDIT-C) 1. How often do you have a drink containing alcohol?: Monthly or less 2. How many drinks containing alcohol do you have on a typical day when you are drinking?: 3 or 4 3. How often do you have six or more drinks on one occasion?: Never Total Score: 2 REYNALDO-7 AMB Questionnaire REYNALDO-7 Date REYNALDO - 7 assessed: 02/15/25 Feeling nervous, anxious, or on edge: 1 = Several days Not being able to stop or control worryin = Several days Worrying too much about different things: 0 = Not at all Trouble relaxin = Not at all Being so restless that it is hard to sit still: 1 = Several days Becoming easily annoyed or irritable: 0 = Not at all Feeling afraid as if something awful might happen: 0 = Not at all Total REYNALDO-7 score (0-4 normal; 5-9 mild; 10-14 moderate; 15-21 severe): 3 Source: Developed by Drs. Edgardo Peguero, Jolene Melissa, Kennedy Solares and colleagues, with an educational tona from [employer] Review of Systems Const All systems reviewed & are unremarkable except as noted in HPI and below Physical exam (Primary Care) Vital Signs: Last Vital Signs Temp 98.1 F 02/15/25 11:03 Pulse 61 02/15/25 11:03 Resp 16 02/15/25 11:03 BP 92/70 02/15/25 11:03 Pulse Ox 96 02/15/25 11:03 Oxygen Delivery Method Room Air 02/15/25 11:03 BMI result Body Mass Index 19.2 Tobacco/Smoking Status: Tobacco use Status Tobacco use date assessed 02/15/25 02/15/25 11:04 Patient Tobacco Use Status Current someday Tobacco 02/15/25 11:04 e-Cigarette/Vaping Use Currently Using 02/15/25 11:16 PHQ-9: PHQ-9 Score PHQ-9: Total score 3 02/15/25 11:27 Depression Screening Interpretation: Negative Thrive Assessment: Date of Thrive Assessment Date Thrive assessed 02/15/25 02/15/25 11:04 Currently or been in a relationship where the following occur: No concerns reported Const General: comfortable and no acute distress Nutritional Appearance: average body habitus Orientation/consciousness: patient oriented x3 HENMT Head: Yes atraumatic General nose exam: Normal external nose present Face and sinus: Yes face symmetric Mouth: Normal oral and palatal mucosa present, oropharynx normal and moist mucous membranes Neck Neck: Yes full ROM, Yes no lymphadenopathy and Yes supple Thyroid: Thyroid normal Resp Effort & Inspection: normal respiratory effort Auscultation: clear to auscultation bilaterally Cardio Rate: regular rate Rhythm: regular rhythm Heart sounds: S1 normal heart sound present and S2 normal heart sound present GI Palpation (GI): Soft to palpation, nontender, no guarding and no masses Skin General skin exam: no rashes or lesions noted Neuro General: patient oriented x3, gait normal, tone normal, moves all extremities, Normal light touch and pain sensation, no focal motor deficits and CN's II-XI intact bilaterally Extrem Other: Decreased range of motion of left shoulder joint especially on abduction. No gross bone deformity or joint swelling seen, slight tenderness on palpation over left AC joint Psych Appearance: grossly normal and well kempt Mental Status: mental status grossly normal Speech and movement: Normal speech and movement present Affect: normal affect Coding Level of Care Code Est Pt Level 4 (17014) Diagnoses Chronic left shoulder pain M25.512; G89.29 Chronicity: chronic Depression with anxiety F41.8 Additional Codes PHQ-9 - 30393 - PHQ-9 Billing: Yes ([id number]) Assessment & Plan Assessment & Plan (1) Left shoulder pain: Code(s): M25.512 - Pain in left shoulder Category: Medical Qualifiers: Chronicity: chronic Qualified Code(s): M25.512 - Pain in left shoulder; G89.29 - Other chronic pain Plan: Referred for physical therapy, short course of cyclobenzaprine given to patient 5 mg to take 1 twice a day as needed for painful muscle spasms. (2) Depression with anxiety: Code(s): F41.8 - Other specified anxiety disorders Category: Medical Plan: Prescription for hydroxyzine 25 mg per tablet to be taken 1 tablet low more than 3 times a day as needed for acute anxiety attacks 14 tablets with no refill. Advised to follow-up with her psychiatrist and therapist Orders: Orders PT Evaluation and Treatment 02/15/25 M25.512 - Pain in left shoulder Medications: New cyclobenzaprine 5 mg PO BID PRN 30 tabs 0RF Painful muscle spasm M25.512 - Pain in left shoulder Refilled hydroxyzine HCl 25 mg PO TID PRN 14 tabs 0RF anxiety
--- OUTSIDE RECORDS SUMMARY | 2025-02-15 12:01 | XMS_ITS | Clinical Summary ---
Author Organization [facility] it Address [address] [place] [address] Care Team Providers Care Awning Maker Name Role Phone Unavailable Primary Care Provider Unavailabl e Social History Tobacco Use Types Packs/Day Years Used Date Smoking Tobacco: Never Assessed Comments Unknown Sex and Gender Information Value Date Recorded Sex Assigned at Not on file Legal Sex Female 9:02 AM EST Gender Identity Not on file Sexual Orientation Not on file Plan of Treatment Health Maintenance Due Date Last Done Comments Breast Cancer Screening 1960 DTaP,Tdap,and Td Vaccines (1 - Tdap) 1981 Cervical Cancer Screening: P ap Smear 1983 Pneumococcal Vaccine: 50+ Ye ars (1 of 1 - PCV) 2012 Zoster Vaccines (1 of 2) 2012 Colorectal Cancer Screening: Colonoscopy 09/14/2022 Depression Screening 09/14/2022 HIV Screening 09/14/2022 Hepatitis C Screening 09/14/2022 Social Influencers of Health Screening 09/14/2022 COVID-19 Vaccine (1 - 2023-2 5 season) 2024 Influenza Vaccine (Season Ended) 2025 RSV Immunization Adult Patie nts (1 - 1-dose 75+ series) 2037 HIB Vaccines Aged Out No longer eligi ble based on patient's age to complete this topic HPV Vaccines Aged Out No longer eligi ble based on patient's age to complete this topic Hepatitis A Vaccines Aged Out No long er eligible based on patient's age to complete this topic Hepatitis B Vaccines Aged Out No long er eligible based on patient's age to complete this topic IPV Vaccines Aged Out No longer eligi ble based on patient's age to complete this topic MMR Vaccines Aged Out No longer eligi ble based on patient's age to complete this topic Meningococcal ACWY Vaccine Aged Out N o longer eligible based on patient's age to complete this topic Meningococcal B Vaccine Aged Out No l onger eligible based on patient's age to complete this topic Pneumococcal Vaccine: Pediat rics (0 to 5 Years) and At-Risk Patients (6 to 64 Years) Aged Out No longer eligible b ased on patient's age to complete this topic RSV Immunization Patients Un hira 20 months Aged Out No longer eligible b ased on patient's age to complete this topic Varicella Vaccines Aged Out No longer eligible based on patient's age to complete this topic
== END 2025-02-15 11:35 | disposition home or self-care (01) ==
LOC: HO.HMCC 10:43
PROVIDERS: PCP Internal Medicine; Visit Provider Internal Medicine
DX: M25.512 Pain in left shoulder (principal); G89.29 Other chronic pain; F41.8 Other specified anxiety disorders

== ENCOUNTER → 2025-02-15 10:42 | Outpatient (BNVA) | payer MEDICARE, MEDICAID, SELFPAY | PROVIDERS: PCP Internal Medicine; Visit Provider Internal Medicine | DX: M25.512 Pain in left shoulder (principal); G89.29 Other chronic pain; F41.8 Other specified anxiety disorders | CPT/HCPCS: 96127; 99212 ==